=== PATIENT | female | born 1965 | race Caucasian/White ===

== ENCOUNTER 2017-04-19 07:05 | Emergency (ER) | payer BC ==
[2017-04-19 07:19] VITALS: BP 96/32
--- NOTE | 2017-04-19 07:44 | UC ---
Abdominal Pain Female HPI - HPI Summary HPI Summary: 36 HRS OF LOOSE STOOLS WITH TIGIST BRIGHT RED BLOOD. REPORTS LOW GRADE FEVER TMAX 101. APPETITE IS DOWN. IS TAKING FLUIDS BUT NOT MUCH - 500ML EVERY 12 HOURS OR SO. HAS LOWER ABDOMINAL CRAMPING. DENIES NAUSEA, NO VOMITING. IS STARTING TO FEEL DIZZY. HAD HER DRIVE HER HERE SHE DIDN'T FEEL SHE COULD DRIVE HERSELF. - History of Current Complaint Chief Complaint: UCGI Stated Complaint: CRAMPING, AND DIARRHEA WITH BLOOD Time Seen by Provider: 04/19/17 07:18 Hx Obtained From: Patient Hx Last Menstrual Period: one week ago Onset/Duration: Sudden Onset, Lasting Days, Still Present Severity Initially: Moderate Severity Currently: Moderate Pain Intensity: 9 Pain Scale Used: 0-10 Numeric Location: Diffuse Radiates: No Character: Cramping Aggravating Factor(s): Nothing Alleviating Factor(s): Nothing Associated Signs and Symptoms: Positive: Fever, Blood in Stool, Decreased Appetite, Diarrhea. Negative: Nausea, Vomiting Allergies/Adverse Reactions: Allergies Allergy/AdvReac Type Severity Reaction Status Date / Time MS Sulfa Antibiotics Allergy Itching Verified 12/15/15 07:52 [Sulfa Antibiotics] PMH/Surg Hx/FS Hx/Imm Hx Respiratory History: Asthma - Surgical History Surgical History: Yes Surgery Procedure, Year, and Place: HEART MURMUR CORRECTION 1984, BREAST REDUCTION SURGERY 2010, tonsilectomy - Family History Known Family History: Positive: Diabetes Negative: Blood Disorder Family History: NO FAMILY H/O INFLAMMATORY BOWEL DISEASE - Social History Alcohol Use: Rare Substance Use Type: None Smoking Status (MU): Never Smoked Tobacco Have You Smoked in the Last Year: No Review of Systems Constitutional: Fever, Other - DIZZY Respiratory: Negative Cardiovascular: Negative Gastrointestinal: Abdominal Pain, Diarrhea, Nausea Genitourinary: Negative All Other Systems Reviewed And Are Negative: Yes Physical Exam Triage Information Reviewed: Yes Appearance: Well-Appearing, No Pain Distress, Well-Nourished Vital Signs: Initial Vital Signs Temp 98.0 F 04/19/17 07:12 Pulse 71 04/19/17 07:12 Resp 16 04/19/17 07:12 BP 96/32 04/19/17 07:12 Pulse Ox 98 04/19/17 07:12 Vital Signs Reviewed: Yes Eyes: Positive: Conjunctiva Clear ENT: Positive: Hearing grossly normal Neck: Positive: Supple Respiratory Exam: Normal Cardiovascular Exam: Normal Abdomen Description: Positive: Soft, Other: - MILDLY TENDER ACROSS LOWER ABDOMEN. PT DECLINES ALMA DELIA. Negative: CVA Tenderness (R), CVA Tenderness (L), Distended, Guarding Bowel Sounds: Positive: Present Musculoskeletal: Positive: No Edema Neurological: Positive: Alert Psychological: Positive: Age Appropriate Behavior Skin: Negative: rashes Abd Pain Female Course/Dx - Course Course Of Treatment: PT WITH 36 HRS OF BRIGHT RED BLOOD PER RECTUM AND LOW GRADE FEVERS. IS STARTING TO FEEL DIZZY AND BP IS RELATIVELY LOW (96/32). TO [facility] ED BY PRIVATE CAR. PT OFFERED TRANSPORT BY AMBULANCE BUT DECLINES. ADVISED THAT BY NOT TRAVELING IN A MONITORED SETTING SHE COULD BE RISKING WORSENING OF HER CONDITION THAT COULD POSE A THREAT TO HER LIFE, HEALTH AND MEDICAL SAFETY. SHE VERBALIZES UNDERSTANDING AND CONTINUES TO DECLINE AMBULANCE TRANSFER. WILL DRIVE. - Differential Dx/Diagnosis Provider Diagnoses: BRIGHT RED BLOOD PER RECTUM Discharge - Discharge Plan Condition: Stable Disposition: OTHER Discharge Disposition Comment: TO [facility] ED BY PRIVATE CAR Patient Education Materials: Rectal Bleeding (ED) Additional Instructions: GO DIRECTLY TO THE [facility] ED FROM HERE FOR FURTHER EVALUATION. CALL THE NUMBER BELOW FOR ASSISTANCE IN ESTABLISHING WITH A PCP An additional resource available to assist in finding the appropriate physician for your health care needs is the [facility] ([facility]). You may contact them by calling [phone].
== END 2017-04-19 07:39 ==
LOC: UCEAST 07:05
DX: K62.5 Hemorrhage of anus and rectum (principal); R10.30 Lower abdominal pain, unspecified; Z88.2 Allergy status to sulfonamides
CPT/HCPCS: 99212; G0463

== ENCOUNTER 2017-04-19 08:51 | Emergency (ER) | payer BC ==
[2017-04-19 09:50] LABS: ABS Basophils 0 10^3/ul (0-0.2); ABS Eosinophils 0.2 10^3/ul (0-0.6); ABS Lymphocytes 1.5 10^3/ul (1.0-4.8); ABS Monocytes 0.5 10^3/ul (0-0.8); ABS Neutrophils 5.1 10^3/ul (1.5-7.7); ABS Nucleated RBC 0 10^3/ul; Eosinophil % 2.6 % (0-6); Hematocrit 41 % (35-47); Hemoglobin 14.7 g/dl (12.0-16.0); Lymphocyte % 20.6 % (25-47); Mean Corpuscular HGB Conc 36 g/dl (31-36); Mean Corpuscular Hemoglobin 31 pg (27-31); Mean Corpuscular Volume 86 fL (80-97); Mean Platelet Volume 9 um3 (7.4-10.4); Nucleated Red Blood Cells % 0; Platelet Count 175 10^3/ul (150-450); Red Blood Count 4.76 10^6/ul (4.0-5.4); Red Cell Distribution Width 13 % (10.5-15); White Blood Count 7.3 10^3/ul (3.5-10.8)
[2017-04-19 10:04] LABS: INR 0.97 (0.77-1.02)
[2017-04-19 10:07] LABS: EGFR Non-African American 94.4 (>60)
[2017-04-19] MEDS ORDERED: Iohexol 300* (CONTRAST) 10 ML SDV IV ONE (10:57)
[2017-04-19] MEDS ORDERED: Metoclopramide IV* 5 MG/ML 2 ML VIAL IV ONE (11:01)
[2017-04-19] MEDS ORDERED: Ketorolac INJ* 30 MG/ML 1 ML VIAL IM ONE (11:01)
[2017-04-19] MEDS ORDERED: diPHENhydraMINE IV* 50 MG/ML 1 ml VIAL (BENADRYL) IM ONE (11:01)
[2017-04-19 11:28] LABS: Urine Appearance Cloudy; Urine Blood 2+ (Negative); Urine Color Yellow; Urine Ketones Negative (Negative); Urine Protein Negative (Negative); Urine Specific Gravity 1.009 (1.010-1.030); Urine Urobilinogen Negative (Negative)
[2017-04-19 12:45] VITALS: BP 136/77
--- NOTE | 2017-04-19 12:50 | RAD ---
CLINICAL HISTORY: Abdominal pain COMPARISON: December 15, 2015 TECHNIQUE: Multiple contiguous axial CT scans were obtained of the abdomen and pelvis after the administration of intravenous contrast. Coronal and sagittal multiplanar reformations are submitted for review. Oral contrast was administered. Delayed images were obtained through the abdomen and pelvis. FINDINGS: LUNG BASES: The lung bases are clear. LIVER: The liver is normal in shape, size, contour, and attenuation. BILE DUCTS: There is no intrahepatic or extrahepatic biliary dilatation. GALLBLADDER: The gallbladder is normal, without pericholecystic inflammatory change. PANCREAS: The pancreas is normal, without mass or ductal dilatation. SPLEEN: Normal in size and appearance. UPPER GI TRACT: Evaluation of the gastrointestinal tract is limited by incomplete gastric distention. The upper GI tract is unremarkable. SMALL BOWEL AND MESENTERY: The small bowel is normal in contour, course, and caliber. There is no obstruction or dilatation. COLON: There is mucosal thickening of the descending colon with mild stranding of the pericolonic fat. There is a tubular, vermiform, hollow viscus that is blind ending, and originates from the cecum, consistent with a normal appendix. There is no periappendiceal inflammatory change. ADRENALS: Normal bilaterally. KIDNEYS: The kidneys are normal in shape, size, contour, and axis. There is no hydronephrosis or nephrolithiasis. BLADDER: The bladder is smooth in contour. PELVIC ORGANS: The uterus is enlarged and lobulated with multiple fibroids, the largest along the posterior body measuring 5.7 cm. There is prominence of the vasculature along the broad ligaments bilaterally. AORTA: The aorta is normal. IVC: Unremarkable LYMPH NODES: There is no lymphadenopathy by size criteria. ABDOMINAL WALL: There is diastasis recti with a small umbilical hernia containing sidewall of large bowel. BONES AND SOFT TISSUES: Mild degenerative changes are noted. There is a pectus excavatum deformity. OTHER: None IMPRESSION: 1. MUCOSAL THICKENING OF THE DESCENDING COLON WITH STRANDING OF THE PERICOLIC FAT SUGGESTIVE OF COLITIS. 2. FIBROID UTERUS. 3. PROMINENCE OF THE PELVIC VASCULATURE ALONG THE BROAD LIGAMENTS BILATERALLY, NONSPECIFIC BUT CAN BE ASSOCIATED WITH PELVIC CONGESTION SYNDROME IN THE CORRECT CLINICAL SETTING..
--- NOTE | 2017-04-19 18:33 | ED ---
[facility] Angela, scribed for Jose Klein MD on 04/19/17 at 0924 . GI/ HPI - HPI Summary HPI Summary: This pt is a 51 y/o female presenting to [facility] referred by [facility] c/o abdominal cramping and rectal bleeding x2 days. Pt reports that her symptoms began with diarrhea and intense abdominal cramping 2 days ago. She notes diarrhea was more solid than liquid. Pt describes the abd cramping like "maternity cramps."Pt notes that throughout the day pt had rectal bleeding after the bouts of diarrhea. She additionally reports she had a migraine 4 days ago (Monday) for 3 days ( until Monday). Pt took her migraine medication 3 days ago. Pt notes she takes this medication weekly, approximately 5-6 pills/week. Pt has never had a colonoscopy in the past. She has never had rectal bleeding in the past. - History of Current Complaint Chief Complaint: EDAbdPain Time Seen by Provider: 04/19/17 09:15 Stated Complaint: CRAMPING Hx Obtained From: Patient Hx Last Menstrual Period: one week ago Onset/Duration: Started Days Ago, Still Present Timing: Lasting Days Current Severity: Severe Pain Intensity: 9 Location of Pain: Diffuse Pain Characteristics: Cramping Associated Signs and Symptoms: Positive: Bright Red Blood w/Stool, Blood w/Stool , Diarrhea, Other: - rectal bleeding, headache - Allergy/Home Medications Allergies/Adverse Reactions: Allergies Allergy/AdvReac Type Severity Reaction Status Date / Time MS Sulfa Antibiotics Allergy Itching Verified 12/15/15 07:52 [Sulfa Antibiotics] PMH/Surg Hx/FS Hx/Imm Hx Endocrine/Hematology History: Denies: Hx Diabetes - gestational diabetes 11 yrs ago Cardiovascular History: Denies: Hx Hypertension, Hx Pacemaker/ICD Respiratory History: Reports: Hx Asthma - bronchiole spasm according to the patient History: Denies: Hx Dialysis, Hx Renal Disease Sensory History: Denies: Hx Hearing Aid Psychiatric History: Denies: Hx Panic Disorder - Cancer History Hx Chemotherapy: No Hx Radiation Therapy: No - Surgical History Surgery Procedure, Year, and Place: HEART MURMUR CORRECTION 1984, BREAST REDUCTION SURGERY 2010, tonsilectomy Infectious Disease History: No Infectious Disease History: Denies: Hx Clostridium Difficile, Hx Hepatitis, Hx Human Immunodeficiency Virus (HIV), Hx of Known/Suspected MRSA, Hx Shingles, Hx Tuberculosis, Hx Known/ Suspected VRE, Hx Known/Suspected VRSA, History Other Infectious Disease, Traveled Outside the [place] in Last 30 Days - Family History Known Family History: Positive: Diabetes Negative: Blood Disorder Family History: NO FAMILY H/O INFLAMMATORY BOWEL DISEASE - Social History Alcohol Use: Rare Substance Use Type: Reports: None Smoking Status (MU): Never Smoked Tobacco Have You Smoked in the Last Year: No Review of Systems Negative: Fever, Chills Eyes: Negative Gastrointestinal: Other - rectal bleeding Positive: Abdominal Pain, Diarrhea Musculoskeletal: Negative Skin: Negative Positive: Headache All Other Systems Reviewed And Are Negative: Yes Physical Exam - Summary Physical Exam Summary: VITAL SIGNS: Reviewed. GENERAL: Patient is a well-developed and nourished female who is lying comfortable in the stretcher. Patient is not in any acute respiratory distress. HEAD AND FACE: Normocephalic and atraumatic. EYES: PERRLA, EOMI x 2, No injected conjunctiva. EARS: Hearing grossly intact. Ear canals and tympanic membranes are WNL. MOUTH: Oropharynx within normal limits. NECK: Supple, trachea is midline, no adenopathy, no JVD. CHEST: Symmetric, no tenderness at palpation LUNGS: Clear to auscultation bilaterally. No wheezing or crackles. CVS: RRR, S1 and S2 present, no murmurs or gallops appreciated. ABDOMEN: Soft, non-tender. No signs of distention. Positive bowel sounds. No rebound no guarding, and no masses palpated. No abdominal bruit or pulsations. 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 No external hemorrhoids, normal sphincter tone, no melena or gross blood. EXTREMITIES: FROM in all major joints, no edema, no cyanosis or clubbing. NEURO: Alert and oriented x 3. No acute neurological deficits. Speech is normal. SKIN: Dry and warm Triage Information Reviewed: Yes Vital Signs On Initial Exam: Initial Vitals Temp Pulse Resp BP Pulse Ox 97.9 F 62 18 119/65 97 04/19/17 08:52 04/19/17 08:52 04/19/17 08:52 04/19/17 08:52 04/19/17 08:52 Vital Signs Reviewed: Yes Diagnostics - Vital Signs Vital Signs Temp Pulse Resp BP Pulse Ox 04/19/17 08:52 97.9 F 62 18 119/65 97 - Laboratory Lab Results: Lab Results 04/19/17 04/19/17 04/19/17 Range/Units 09:40 09:40 09:40 WBC 7.3 (3.5-10.8) 10^3/ul RBC 4.76 (4.0-5.4) 10^6/ul Hgb 14.7 (12.0-16.0) g/dl Hct 41 (35-47) % MCV 86 (80-97) fL MCH 31 (27-31) pg MCHC 36 (31-36) g/dl RDW 13 (10.5-15) % Plt Count 175 (150-450) 10^3/ul MPV 9 (7.4-10.4) um3 Neut % (Auto) 69.9 (38-83) % Lymph % (Auto) 20.6 L (25-47) % [place] % (Auto) 6.3 (1-9) % Eos % (Auto) 2.6 (0-6) % Baso % (Auto) 0.6 (0-2) % Absolute Neuts (auto) 5.1 (1.5-7.7) 10^3/ul Absolute Lymphs (auto) 1.5 (1.0-4.8) 10^3/ul Absolute Monos (auto) 0.5 (0-0.8) 10^3/ul Absolute Eos (auto) 0.2 (0-0.6) 10^3/ul Absolute Basos (auto) 0 (0-0.2) 10^3/ul Absolute Nucleated RBC 0 10^3/ul Nucleated RBC % 0 INR (Anticoag Therapy) 0.97 (0.77-1.02) APTT 28.7 (26.0-36.3) seconds Sodium 135 (133-145) mmol/L Potassium 3.6 (3.5-5.0) mmol/L Chloride 102 (101-111) mmol/L Carbon Dioxide 28 (22-32) mmol/L Anion Gap 5 (2-11) mmol/L BUN 13 (6-24) mg/dL Creatinine 0.66 (0.51-0.95) mg/dL Est GFR ( Amer) 121.4 (>60) Est GFR (Non-Af Amer) 94.4 (>60) BUN/Creatinine Ratio 19.7 (8-20) Glucose 122 H (70-100) mg/dL Calcium 9.5 (8.6-10.3) mg/dL Total Bilirubin 0.90 (0.2-1.0) mg/dL AST 13 (13-39) U/L ALT 12 (7-52) U/L Alkaline Phosphatase 38 (34-104) U/L C-Reactive Protein 14.89 H (< 5.00) mg/L Total Protein 6.8 (6.4-8.9) g/dL Albumin 4.2 (3.2-5.2) g/dL Globulin 2.6 (2-4) g/dL Albumin/Globulin Ratio 1.6 (1-3) Lipase 15 (11.0-82.0) U/L Urine Color Urine Appearance Urine pH (5-9) Ur Specific [place] (1.010-1.030) Urine Protein (Negative) Urine Ketones (Negative) Urine Blood (Negative) Urine Nitrate (Negative) Urine Bilirubin (Negative) Urine Urobilinogen (Negative) Ur Leukocyte Esterase (Negative) Urine WBC (Auto) (Absent) Urine RBC (Auto) (Absent) Ur Squamous Epith Cells (Absent) Urine Bacteria (Absent) Urine Glucose (Negative) 04/19/17 Range/Units 11:00 WBC (3.5-10.8) 10^3/ul RBC (4.0-5.4) 10^6/ul Hgb (12.0-16.0) g/dl Hct (35-47) % MCV (80-97) fL MCH (27-31) pg MCHC (31-36) g/dl RDW (10.5-15) % Plt Count (150-450) 10^3/ul MPV (7.4-10.4) um3 Neut % (Auto) (38-83) % Lymph % (Auto) (25-47) % [place] % (Auto) (1-9) % Eos % (Auto) (0-6) % Baso % (Auto) (0-2) % Absolute Neuts (auto) (1.5-7.7) 10^3/ul Absolute Lymphs (auto) (1.0-4.8) 10^3/ul Absolute Monos (auto) (0-0.8) 10^3/ul Absolute Eos (auto) (0-0.6) 10^3/ul Absolute Basos (auto) (0-0.2) 10^3/ul Absolute Nucleated RBC 10^3/ul Nucleated RBC % INR (Anticoag Therapy) (0.77-1.02) APTT (26.0-36.3) seconds Sodium (133-145) mmol/L Potassium (3.5-5.0) mmol/L Chloride (101-111) mmol/L Carbon Dioxide (22-32) mmol/L Anion Gap (2-11) mmol/L BUN (6-24) mg/dL Creatinine (0.51-0.95) mg/dL Est GFR ( Amer) (>60) Est GFR (Non-Af Amer) (>60) BUN/Creatinine Ratio (8-20) Glucose (70-100) mg/dL Calcium (8.6-10.3) mg/dL Total Bilirubin (0.2-1.0) mg/dL AST (13-39) U/L ALT (7-52) U/L Alkaline Phosphatase (34-104) U/L C-Reactive Protein (< 5.00) mg/L Total Protein (6.4-8.9) g/dL Albumin (3.2-5.2) g/dL Globulin (2-4) g/dL Albumin/Globulin Ratio (1-3) Lipase (11.0-82.0) U/L Urine Color Yellow Urine Appearance Cloudy Urine pH 6.0 (5-9) Ur Specific [place] 1.009 L (1.010-1.030) Urine Protein Negative (Negative) Urine Ketones Negative (Negative) Urine Blood 2+ H (Negative) Urine Nitrate Negative (Negative) Urine Bilirubin Negative (Negative) Urine Urobilinogen Negative (Negative) Ur Leukocyte Esterase 1+ H (Negative) Urine WBC (Auto) 2+(11-20/hpf) H (Absent) Urine RBC (Auto) Trace(0-2/hpf) (Absent) Ur Squamous Epith Cells Present H (Absent) Urine Bacteria 1+ H (Absent) Urine Glucose Negative (Negative) Result Diagrams: 04/19/17 09:40 04/19/17 09:40 Lab Statement: Any lab studies that have been ordered have been reviewed, and results considered in the medical decision making process. - CT Abdomen/Pelvis CT CT Interpretation: Positive (See Comments) - IMPRESSION: 1. Mucosal thickening of the descending colon with stranding of the pericolic fat suggestive colitis. 2. Fibroid uterus. 3. Prominence of the pelvic vasculature along the broad ligaments bilaterally. Nonspecific but can be associated with pelvic congestion syndrome in the correct clinical setting. Dr. Klein has reviewed this radiology report. CT Interpretation Completed By: Radiologist - EKG 09:50 Cardiac Rate: NL EKG Rhythm: Sinus Rhythm - at 63 bpm EKG Interpretation: No ST elevation. T wave inversion V2-V5. Re-Evaluation - Re-Evaluation First Eval Re-Evaluation Time: 13:30 Comment: I reviewed the CT and lab results with the pt. GIGU Course/Dx - Course Assessment/Plan: This pt is a 51 y/o female presenting to [facility] referred by [facility] c/o abdominal cramping and rectal bleeding x2 days. Pt reports that her symptoms began with diarrhea and intense abdominal cramping 2 days ago. She notes diarrhea was more solid than liquid. Pt describes the abd cramping like "maternity cramps."Pt notes that throughout the day pt had rectal bleeding after the bouts of diarrhea. She additionally reports she had a migraine 4 days ago (Monday) for 3 days (until Monday). Pt took her migraine medication 3 days ago. Pt notes she takes this medication weekly, approximately 5-6 pills/ week. Pt has never had a colonoscopy in the past. She has never had rectal bleeding in the past. Test results without any significant abnormalities. Urinalysis is contaminated. Abdomen/Pelvis CT: 1. Mucosal thickening of the descending colon with stranding of the pericolic fat suggestive colitis. 2. Fibroid uterus. 3. Prominence of the pelvic vasculature along the broad ligaments bilaterally. Nonspecific but can be associated with pelvic congestion syndrome in the correct clinical setting. In the ED course the pt developed a headache similar to her migraine headache. She was given Benadryl, Toradol and Reglan and after these medications all her symptoms resolved. She reports she has no more abdominal pain or headache. Since she has colitis, she was discharged to home with follow up from GI, as she insisted she needed a GI consult. She was given Bentyl for the cramping. Pt will be discharged to home with follow up from her PCP. Pt is hemodynamically stable, alert and oriented x3. - Diagnoses Provider Diagnoses: Colitis, Migraine Discharge - Discharge Plan Condition: Stable Disposition: HOME Prescriptions: Dicyclomine CAP* [Bentyl CAP*] 10 mg PO AC PRN #10 cap PRN Reason: Pain Patient Education Materials: Colitis (ED) Referrals: Bryce Morris MD [Medical Doctor] - No Primary Care Phys,NOPCP [Primary Care Provider] - Aaron Lozano MD [Medical Doctor] - Additional Instructions: Please follow up with Dr. Morris or Dr. Lozano, rn trauma. RETURN TO THE ED FOR ANY WORSENING SYMPTOMS. The documentation as recorded by the [facility] Angela accurately reflects the service I personally performed and the decisions made by , Jose Klein MD.
--- NOTE | 2017-04-20 12:27 | ED ---
Progress - Progress Note Progress Note: Pt's stool occult blood test was positive. She was dx'd w/ colitis and referred to GI. Vitals and labs appear WNL day of visit in re: to GI bleed. Called pt to confirm she still feels well and make sure she's f/u'd w/ GI. LMTC. Re-Evaluation - Re-Evaluation First Eval Re-Evaluation Time: 13:30 Comment: I reviewed the CT and lab results with the pt. Course/Dx - Diagnoses Provider Diagnoses: Colitis, Migraine
== END 2017-04-19 13:50 | disposition home or self-care (01) ==
LOC: ED 08:51
DX: K52.9 Noninfective gastroenteritis and colitis, unspecified (principal); R10.9 Unspecified abdominal pain; R19.7 Diarrhea, unspecified; G43.909 Migraine, unspecified, not intractable, without status migrainosus; K62.5 Hemorrhage of anus and rectum; R51 Headache
CPT/HCPCS: 36415; 74177; 80053; 81003; 81015; 82272; 83690; 85025; 85610; 85730; 86140; 87086; 93005; 96372; 99284; J1200; J1885; J2765; Q9967

== ENCOUNTER 2017-04-21 13:05 | Emergency (ER) | payer BC ==
--- NOTE | 2017-04-21 14:28 | RAD ---
INDICATION: Right lower quadrant pain. COMPARISON: Comparison is made with a prior pelvic ultrasound from December 08, 2015. TECHNIQUE: Multiple real-time transvaginal images of the pelvis were obtained. FINDINGS: The uterus is enlarged and heterogeneous in echogenicity. The uterus measured 10.4 x 7.7 x 6.7 cm. The endometrial echo measured 1.2 cm in thickness. There are multiple masses within the uterus system with leiomyomas. In the posterior body of the uterus there is a 5.3 x 4.3 x 4.2 cm mass which has decreased in size from the prior exam. In the anterior fundus there is a 1.4 x 0.9 x 1.2 cm mass which has decreased slightly. In the posterior lower uterine segment there is a 2.1 x 1.7 x 22.4 cm mass which is unchanged. The right ovary measured 2.5 x 1.7 x 2.4 cm. The left ovary measured 2.1 x 1.8 x 1.8 cm. There is vascular flow within both ovaries. There is a small cyst within the right ovary measuring 1.2 x 1.1 x 1.2 cm. No free intraperitoneal fluid is seen. IMPRESSION: 1. MODERATELY ENLARGED UTERUS WITH MULTIPLE LEIOMYOMAS SLIGHTLY DECREASED IN SIZE FROM THE PRIOR STUDY. 2. SMALL 1.2 CM RIGHT OVARIAN CYST SUGGESTIVE OF A FOLLICULAR CYST.
[2017-04-21 15:25] VITALS: BP 124/60
--- NOTE | 2017-04-21 16:30 | UC ---
Abdominal Pain Female HPI - HPI Summary HPI Summary: 51 yo WF h/o fibroids c/o right lower mid inguinal pain x 2 days, worsening associated with low grade fevers. Still menstrates but no other history. [facility] appt was full so pt was told to come to for pelvic US - History of Current Complaint Chief Complaint: UCGU Stated Complaint: ABD PAIN Time Seen by Provider: 04/21/17 15:57 Hx Obtained From: Patient Hx Last Menstrual Period: 04/08/17 Onset/Duration: Gradual Onset Severity Initially: Moderate Pain Intensity: 4 Radiates to: Inguinal Character: Cramping, Sharp Allergies/Adverse Reactions: Allergies Allergy/AdvReac Type Severity Reaction Status Date / Time Sulfa (Sulfonamide Allergy Hives Verified 04/21/17 13:22 Antibiotics) PMH/Surg Hx/FS Hx/Imm Hx - Additional Past Medical History Additional PMH: IBD, Fibroids - Surgical History Surgical History: Yes Surgery Procedure, Year, and Place: HEART MURMUR CORRECTION 1984, BREAST REDUCTION SURGERY 2010, tonsilectomy - Family History Known Family History: Positive: Diabetes Negative: Blood Disorder Family History: NO FAMILY H/O INFLAMMATORY BOWEL DISEASE - Social History Alcohol Use: Rare Substance Use Type: None Smoking Status (MU): Never Smoked Tobacco Have You Smoked in the Last Year: No Review of Systems Constitutional: Fever Skin: Negative Eyes: Negative ENT: Negative Respiratory: Negative Cardiovascular: Negative Gastrointestinal: Abdominal Pain Genitourinary: Negative Motor: Negative Neurovascular: Negative Musculoskeletal: Negative Neurological: Negative Psychological: Negative Is Patient Immunocompromised?: No All Other Systems Reviewed And Are Negative: Yes Physical Exam Triage Information Reviewed: Yes Vital Signs: Initial Vital Signs Temp 36.2 C 04/21/17 13:12 Pulse 57 04/21/17 13:12 Resp 16 04/21/17 13:12 BP 121/63 04/21/17 13:12 Pulse Ox 100 04/21/17 13:12 Eye Exam: Normal ENT Exam: Normal Dental Exam: Normal Neck exam: Normal Neck: Positive: 1 Respiratory Exam: Normal Cardiovascular Exam: Normal Abdomen Description: Positive: Soft, Other: - right mid inguinal tenderness, no rebound or guarding. Negative: CVA Tenderness (R), CVA Tenderness (L), Distended, Guarding, McBurney's Point Tenderness Musculoskeletal Exam: Normal Neurological Exam: Normal Psychological Exam: Normal Skin Exam: Normal Abd Pain Female Course/Dx - Differential Dx/Diagnosis Provider Diagnoses: right pelvic pain Discharge - Discharge Plan Condition: Stable Disposition: HOME Patient Education Materials: Chronic Abdominal Pain (ED) Referrals: Vianney Enrique MD [Primary Care Provider] - Additional Instructions: follow up with [facility]
== END 2017-04-21 16:27 | disposition home or self-care (01) ==
LOC: UCEAST 13:05
DX: R10.2 Pelvic and perineal pain (principal); Z88.2 Allergy status to sulfonamides
CPT/HCPCS: 76830; 99211; G0463

== ENCOUNTER 2017-06-03 21:17 | Emergency (ER) | payer BC ==
[2017-06-03 21:35] VITALS: BP 125/76
--- NOTE | 2017-06-03 21:45 | UC ---
Skin Complaint HPI - HPI Summary HPI Summary: Pt presents with right thumb pad pain. She tells me that 5 days ago she was cleaning up a broken glass on the floor and thinks she may have gotten a small piece under her skin. Had no pain at the time, but today has a small area of redness and pain on her right thumb. - History of Current Complaint Chief Complaint: UCUpperExtremity Time Seen by Provider: 06/03/17 21:45 Stated Complaint: POSS GLASS IN THUMB Hx Obtained From: Patient Hx Last Menstrual Period: one month ago Onset/Duration: Sudden Onset Current Severity: Moderate Pain Intensity: 5 Pain Scale Used: 0-10 Numeric - Allergy/Home Medications Allergies/Adverse Reactions: Allergies Allergy/AdvReac Type Severity Reaction Status Date / Time Sulfa (Sulfonamide Allergy Hives Verified 06/03/17 21:35 Antibiotics) Home Medications: Home Medications NK [No Home Medications Reported] 06/03/17 [History Confirmed 06/03/17] Review of Systems Constitutional: Negative Skin: Other - Right thumb redness Respiratory: Negative Cardiovascular: Negative Neurovascular: Negative Musculoskeletal: Negative Neurological: Negative Psychological: Negative All Other Systems Reviewed And Are Negative: Yes PMH/Surg Hx/FS Hx/Imm Hx Previously Healthy: Yes - Surgical History Surgical History: Yes Surgery Procedure, Year, and Place: HEART MURMUR CORRECTION 1984, BREAST REDUCTION SURGERY 2010, tonsilectomy - Family History Known Family History: Positive: Diabetes Negative: Blood Disorder Family History: NO FAMILY H/O INFLAMMATORY BOWEL DISEASE - Social History Occupation: Employed Full-time Lives: With Family Alcohol Use: Rare Substance Use Type: None Smoking Status (MU): Never Smoked Tobacco Have You Smoked in the Last Year: No Physical Exam Triage Information Reviewed: Yes Appearance: Well-Appearing, No Pain Distress, Well-Nourished Vital Signs: Initial Vital Signs Temp 98.3 F 06/03/17 21:32 Pulse 66 06/03/17 21:32 Resp 12 06/03/17 21:32 BP 125/76 06/03/17 21:32 Pulse Ox 99 06/03/17 21:32 Vital Signs Reviewed: Yes Neck: Positive: Supple, Nontender, No Lymphadenopathy Respiratory: Positive: Lungs clear, Normal breath sounds, No respiratory distress, No accessory muscle use Cardiovascular: Positive: RRR, No Murmur, Pulses Normal Musculoskeletal: Positive: Strength Intact - Right thumb, ROM Intact - Right thumb, No Edema - Right thumb Neurological: Positive: Alert Psychological: Positive: Age Appropriate Behavior Skin: Positive: Other - <1mm pinpoint ?scab on right thumb pad. Mild ttp. No appreciable FB. No drainage or bleeding. Course/Dx - Course Course Of Treatment: I offered the patient a referral to dermatology or Orthopedics for further investigation of her potential FB. I also offered her my services of exploring the wound with a local incision. She was upset that we did not posess a magnifying glass or microscope that could see if there was something in her skin. She chose not to undergo treatment and will f/u prn. - Diagnoses Provider Diagnoses: Right thumb pain Discharge - Sign-Out/Discharge Documenting (check all that apply): Discharge - Discharge Plan Condition: Stable Disposition: HOME Referrals: Vianney Enrique MD [Primary Care Provider] - Additional Instructions: If you develop a fever, shortness of breath, chest pain, new or worsening symptoms - please call your PCP or go to the ED. - Billing Disposition and Condition Condition: STABLE Disposition: HOME
== END 2017-06-03 22:17 | disposition home or self-care (01) ==
LOC: UCEAST 21:17
DX: M79.644 Pain in right finger(s) (principal); Z88.2 Allergy status to sulfonamides
CPT/HCPCS: 99211; G0463

== ENCOUNTER 2017-09-14 12:43 | Emergency (ER) | payer BC ==
[2017-09-14 12:54] VITALS: BP 109/56
--- NOTE | 2017-09-14 14:36 | ED ---
Throat Pain/Nasal Congestion - HPI Summary HPI Summary: Patient believes she swallowed a half a smaller portion of the day old toothpick that was lodged in a piece of meat at 11:00 this morning. She felt something sharp in her mouth however denies pain in her throat, esophagus or stomach. She's been able to swallow her saliva as well as water without pain or difficulty. She is also breathing without pain or difficulty. - History of Current Complaint Chief Complaint: EDForeignBodyEsophag Time Seen by Provider: 09/14/17 13:25 Hx Obtained From: Patient - Allergies/Home Medications Allergies/Adverse Reactions: Allergies Allergy/AdvReac Type Severity Reaction Status Date / Time Sulfa (Sulfonamide Allergy Hives Verified 09/14/17 12:54 Antibiotics) Home Medications: Home Medications Multivitamins/Minerals TAB* [Theragran/minerals TAB*] 1 tab PO DAILY 09/14/17 [ History Confirmed 09/14/17] PMH/Surg Hx/FS Hx/Imm Hx Endocrine/Hematology History: Denies: Hx Diabetes - gestational diabetes 11 yrs ago Cardiovascular History: Denies: Hx Hypertension, Hx Pacemaker/ICD Respiratory History: Reports: Hx Asthma - bronchiole spasm according to the patient History: Denies: Hx Dialysis, Hx Renal Disease Sensory History: Denies: Hx Hearing Aid Psychiatric History: Denies: Hx Panic Disorder - Cancer History Hx Chemotherapy: No Hx Radiation Therapy: No - Surgical History Surgery Procedure, Year, and Place: HEART MURMUR CORRECTION 1984, BREAST REDUCTION SURGERY 2010, tonsilectomy Infectious Disease History: No Infectious Disease History: Denies: Hx Clostridium Difficile, Hx Hepatitis, Hx Human Immunodeficiency Virus (HIV), Hx of Known/Suspected MRSA, Hx Shingles, Hx Tuberculosis, Hx Known/ Suspected VRE, Hx Known/Suspected VRSA, History Other Infectious Disease, Traveled Outside the [place] in Last 30 Days - Family History Known Family History: Positive: Diabetes Negative: Blood Disorder Family History: NO FAMILY H/O INFLAMMATORY BOWEL DISEASE - Social History Alcohol Use: Rare Substance Use Type: Reports: None Smoking Status (MU): Never Smoked Tobacco Have You Smoked in the Last Year: No Physical Exam Vital Signs On Initial Exam: Initial Vitals Temp Pulse Resp BP Pulse Ox 98.3 F 61 16 109/56 95 09/14/17 12:50 09/14/17 12:50 09/14/17 12:50 09/14/17 12:50 09/14/17 12:50 Diagnostics - Vital Signs Vital Signs Temp Pulse Resp BP Pulse Ox 09/14/17 12:50 98.3 F 61 16 109/56 95 - Laboratory Lab Statement: Any lab studies that have been ordered have been reviewed, and results considered in the medical decision making process. EENT Course/Dx - Course Course Of Treatment: Discussed with Esteban and catie - both feel she does not need further workup at this time. - Diagnoses Provider Diagnoses: Swallowed foreign body Discharge - Sign-Out/Discharge Documenting (check all that apply): Patient Departure - Discharge Plan Condition: Stable Disposition: HOME Patient Education Materials: Foreign Body Ingestion (ED) Referrals: Vianney Enrique MD [Primary Care Provider] - Additional Instructions: Based on your clinical presentation and history of illness, your body will most likely breakdown the small piece of toothpick before it advances further into your digestive tract. *If in the meantime you develop throat swelling, difficulty breathing or swallowing, significant abdominal pain, nausea without vomiting, fevers or chills, neck pain or stiffness, return to the emergency department. - Billing Disposition and Condition Condition: STABLE Disposition: Home
== END 2017-09-14 14:45 | disposition home or self-care (01) ==
LOC: ED 12:43
DX: T18.0XXA Foreign body in mouth, initial encounter (principal); X58.XXXA Exposure to other specified factors, initial encounter; Y92.9 Unspecified place or not applicable; Z88.2 Allergy status to sulfonamides
CPT/HCPCS: 99281

== ENCOUNTER 2018-04-05 14:44 | Emergency (ER) | payer BC ==
--- NOTE | 2018-04-05 15:30 | ED ---
HPI Chest Pain - HPI Summary HPI Summary: 52 year old female with history of asthma and a congenital heart murmur, presents today complaining of chest pain. She had similar pain in the past with a hospital and outpatient work-up done previously. She last saw a fourdrinier tender for this 5-6 years ago. She developed chest pain starting during the night and with exertion. She also endorses a sensation of being "unable to get enough breath," but denies shortness of breath or wheezing. She denies new URI symptoms. No new swelling in the legs. - History of Current Complaint Chief Complaint: EDChestPainROMI Time Seen by Provider: 04/05/18 14:53 Hx Obtained From: Patient Hx Last Menstrual Period: one month ago Onset/Duration: Started Days Ago, Atraumatic Time of Onset: 01:00 - last night Timing: Constant Initial Severity: Mild Current Severity: Mild Pain Intensity: 4 Pain Scale Used: 0-10 Numeric Chest Pain Location: Left Anterior Chest Pain Radiates: Yes Chest Pain Radiates To:: Arm Character: Pressure/Squeezing Aggravating Factor(s): Exertion Alleviating Factor(s): Rest Associated Signs and Symptoms: Negative: Fever, Chills, Nausea, Abdominal Pain, Vomiting - Allergy/Home Medications Allergies/Adverse Reactions: Allergies Allergy/AdvReac Type Severity Reaction Status Date / Time albuterol Allergy Shortness Verified 04/05/18 15:14 of Breath Sulfa (Sulfonamide Allergy Hives Verified 09/14/17 12:54 Antibiotics) PMH/Surg Hx/FS Hx/Imm Hx Endocrine/Hematology History: Denies: Hx Anticoagulant Therapy, Hx Blood Disorders, Hx Diabetes - gestational diabetes 11 yrs ago, Hx Anemia, Hx Unexplained Bleeding Cardiovascular History: Denies: Hx Hypertension, Hx Pacemaker/ICD Respiratory History: Reports: Hx Asthma - bronchiole spasm according to the patient History: Denies: Hx Dialysis, Hx Renal Disease Sensory History: Denies: Hx Hearing Aid Psychiatric History: Denies: Hx Panic Disorder - Cancer History Hx Chemotherapy: No Hx Radiation Therapy: No - Surgical History Surgery Procedure, Year, and Place: HEART MURMUR CORRECTION 1984, BREAST REDUCTION SURGERY 2010, tonsilectomy - Immunization History Immunizations Up to Date: Yes Infectious Disease History: No Infectious Disease History: Denies: Hx Clostridium Difficile, Hx Hepatitis, Hx Human Immunodeficiency Virus (HIV), Hx of Known/Suspected MRSA, Hx Shingles, Hx Tuberculosis, Hx Known/ Suspected VRE, Hx Known/Suspected VRSA, History Other Infectious Disease, Traveled Outside the [place] in Last 30 Days - Family History Known Family History: Positive: Diabetes Negative: Blood Disorder Family History: NO FAMILY H/O INFLAMMATORY BOWEL DISEASE - Social History Alcohol Use: Rare Hx Substance Use: No Substance Use Type: Reports: None Hx Tobacco Use: No Smoking Status (MU): Never Smoked Tobacco Have You Smoked in the Last Year: No Review of Systems Negative: Fever, Chills Negative: Sore Throat, Nasal Discharge Positive: Chest Pain. Negative: Palpitations Respiratory: Other - she has the sensation that she can't get enough air, but doesn't fell short of breath Negative: Shortness Of Breath, Cough Gastrointestinal: Negative Negative: dysuria, hematuria, pain Negative: Arthralgia, Myalgia Negative: Rash Positive: Anxious All Other Systems Reviewed And Are Negative: Yes Physical Exam Triage Information Reviewed: Yes Vital Signs On Initial Exam: Initial Vitals Temp Pulse Resp BP Pulse Ox 97.4 F 65 18 145/71 98 04/05/18 14:47 04/05/18 14:47 04/05/18 14:47 04/05/18 14:47 04/05/18 14:47 Vital Signs Reviewed: Yes Appearance: Positive: Well-Appearing, No Pain Distress, Well-Nourished Skin: Positive: Warm, Skin Color Reflects Adequate Perfusion, Dry Head/Face: Positive: Normal Head/Face Inspection Eyes: Positive: Normal, EOMI, Conjunctiva Clear. Negative: Discharge ENT: Positive: Normal ENT inspection, Hearing grossly normal. Negative: Nasal congestion, Nasal drainage, Muffled voice, Hoarse voice Neck: Positive: Supple, Nontender, No Lymphadenopathy. Negative: Nuchal Rigidity Respiratory/Lung Sounds: Positive: Clear to Auscultation, Breath Sounds Present , Decreased Breath Sounds. Negative: Rales, Rhonchi, Wheezes Cardiovascular: Positive: Normal, RRR. Negative: Leg Edema Left, Leg Edema Right Abdomen Description: Positive: Nontender, No Organomegaly, Soft. Negative: Distended, Guarding Bowel Sounds: Positive: Present Musculoskeletal: Positive: Normal Neurological: Positive: Normal, Sensory/Motor Intact, Alert, Oriented to Person Place, Time, CN Intact II-III, Reflexes Intact, Normal Gait Psychiatric: Positive: Anxious Diagnostics - Vital Signs Vital Signs Temp Pulse Resp BP Pulse Ox 04/05/18 14:47 97.4 F 65 18 145/71 98 - Laboratory Lab Results: Lab Results 04/05/18 Range/Units 14:56 POC Glucose (mg/dL) 95 (70-100) mg/dL Result Diagrams: 04/05/18 15:44 04/05/18 15:44 Lab Statement: Any lab studies that have been ordered have been reviewed, and results considered in the medical decision making process. - EKG No standard instances Cardiac Rate: NL EKG Rhythm: Sinus Rhythm ST Segment: Normal Ectopy: None - t-wave inversions in V1 - V4, t-wave flattening in AVF Summary of EKG Findings: nonspecific ekg Re-Evaluation - Re-Evaluation First Eval Change: Improved Chest Pain Course/Dx - Course Assessment/Plan: Assessment: chest pain. Plan: troponin x2 and discharge patient if negative. - Chest Pain Differential Diagnosis/HQI/PQRI: Acute ME, ACS, Angina, Chest Wall, Other: - anxiety - Diagnoses Provider Diagnoses: Chest pain Is Visit Related: No Discharge - Sign-Out/Discharge Documenting (check all that apply): Patient Departure Patient Received Moderate/Deep Sedation with Procedure: No - Discharge Plan Condition: Good Disposition: HOME Patient Education Materials: Chest Pain (ED) Print Language: GREENLANDIC Referrals: Madeline Silverio MD [Primary Care Provider] - - Billing Disposition and Condition Condition: GOOD Disposition: Home
[2018-04-05 15:59] LABS: ABS Basophils 0 10^3/ul (0-0.2); ABS Eosinophils 0.2 10^3/ul (0-0.6); ABS Lymphocytes 1.7 10^3/ul (1.0-4.8); ABS Monocytes 0.4 10^3/ul (0-0.8); ABS Neutrophils 4.3 10^3/ul (1.5-7.7); ABS Nucleated RBC 0 10^3/ul; Eosinophil % 2.8 %; Hematocrit 40 % (35-47); Hemoglobin 14.2 g/dl (12.0-16.0); Lymphocyte % 25.4 %; Mean Corpuscular HGB Conc 36 g/dl (31-36); Mean Corpuscular Hemoglobin 31 pg (27-31); Mean Corpuscular Volume 86 fL (80-97); Mean Platelet Volume 8.5 fL (7.4-10.4); Nucleated Red Blood Cells % 0.1; Platelet Count 157 10^3/ul (150-450); Red Blood Count 4.64 10^6/ul (4.00-5.40); Red Cell Distribution Width 13 % (10.5-15); White Blood Count 6.6 10^3/ul (3.5-10.8)
--- OUTSIDE RECORDS SUMMARY | 2018-04-05 16:03 | XMS REPORT | Continuity of Care Document ---
:1965 External Reference #:[id number] Author Name Marni Alfaro MD Address [email or web address] [place] [address] Care Team Providers Name Role Phone Nikkie Silverio Primary Care Physician Unavailable Payers Type Date Identification Numbers Payment Provider Subscriber Effective: Policy Number: Armando Bower 2007 [id number] [facility] Expires: 2009 PayID: [id number] [facility] [address] [place] [address] Effective: 2009 Policy Number: Armando CALERO/MALU Bower [id number] [facility] Expires: 2010 PayID: [id number] [facility] [address] [place] [address] Effective: 2010 Policy Number: Armando Bower [id number] [facility] PayID: [id number] [facility] [address] [place] [address] Advance Directives Description No Information Available Problems Description No Active Problems Family History Date Family Member(s) Problem(s) Comments Father A&W Mother Breast Cancer dx age 67 Mother due to Breast Cancer () Mother due to Lung Cancer () Number of Children 1 First Daughter A&W Number of Siblings Siblings: 1 Order Patient is the oldest of two children First Sister A&W Paternal Grandfather due to Old Age () Paternal Grandmother Diabetes, Type 2 Paternal Grandmother due to Diabetes () Maternal Grandfather Hypertension Maternal Grandfather due to Unknown Causes () Maternal Grandmother Breast Cancer dx age 50 Maternal Grandmother due to Breast Cancer () Social History Type Date Description Comments Sex Unknown Education Highest level of education completed is a master's degree Marital Status Patient is Living Situation Lives with spouse and daughter Sleep Typically sleeps 6 hours a night Occupation Teacher sub Cigarette Use Never smoked cigarettes Alcohol Rarely drinks alcohol Tobacco Use Start: Unknown Patient has never smoked Drug Use Denies drug use Smoking Status Reviewed: 08/23/16 Patient has never smoked Daily Caffeine Drinks on average 1 cup of coffee a day Exercise Type/Frequency Exercises regularly Current Seat Belt/Car Seat Always uses a seat belt Currently Active The patient is currently sexually active Contraceptive Methods Does not currently use any method of control 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 Allergies, Adverse Reactions, Alerts Date Description Reaction Status Severity Comments 11/18/2010 Sulfa Active Medications Medication Date Status Form Strength Qnty SIG Indications Ordering Provider Advil / Active Unknown 0000 Almotriptan / Active Unknown Malate 0000 Diflucan 04/05/ Hx Tablets 150mg 2tabs 1 tab by mouth Nara 2018 - then 2nd tab 72 Byers, 03/06/ hours later as CNM 2019 needed for continued symptoms Diflucan 07/04/ Hx Tablets 150mg 2tabs take 1 pill as Piedad 2015 - directed, Jonnathan, 07/19/ repeat in 72 MD 2017 hours if still symptomatic Diflucan 07/02/ Hx Tablets 150mg 1tabs 1 by mouth 616.11 Zuleika 2013 - times 1 day Jump, 07/03/ ANP-C 2013 Metrogel-Vagi 07/09/ Hx Gel 0.75% 1tube apply Delma adkins 2009 - intravaginally Dm, 04/01/ for 5 nights CNM 2010 consecutively Diflucan 06/26/ Hx Tablets 150mg 1tabs 1 po times 1 Zuleika 2008 - day Jump, 06/27/ ANP-C 2008 Axert 11/09/ Hx Tablets 12.5mg 30tabs Briseno 2006 - Can 11/09/ , CNM 2006 Axert 11/09/ Hx Tablets 12.5mg 30tabs take 1 tablet Briseno 2006 - po at onset of Can 11/25/ migraine , CNM 2010 symptoms. Clobetasol 04/26/ Hx Cream 0.05% 30gm apply to Briseno 2006 - affected area Can 08/26/ up to tid , CNM 2007 Diflucan 05/26/ Hx Tablets 150mg 1tabs 1 PO Times 1 Heather 2006 - Day Zuniga, 04/05/ CNM 2006 Terazol 3 03/17/ Hx Cream 0.8% 1Tube 1 application Heather 2005 - per vagina q hs Zuniga, 04/06/ x 3 CNM 2006 Clindesse 2% 09/02/ Hx Cream 5gm 1Tube insert Zuleika 2004 - vaginally @ hs Jump, 12/08/ times 1 ANP-C 2004 Cleocin 2% 07/05/ Hx Cream 2% 40g apply q hs Kentrell O, Vaginal Cream 2005 - C.N.M. 2006 Medications Administered in Office Medication Date Status Form Strength Qnty SIG Indications Ordering Provider PT SCRN Tbco Administered Injection Angelina, Hardy as Non User 019 MD Marni Immunizations Description No Information Available Vital Signs Date Vital Result Comment 03/28/2018 1:08pm BP Systolic 126 mmHg BP Diastolic 78 mmHg Height 62 inches 5'2" Weight 151.00 lb BMI (Body Mass Index) 27.6 kg/m2 Last Menstrual Period [id number] 08/23/2016 11:52am BP Systolic 110 mmHg BP Diastolic 70 mmHg Height 62 inches 5'2" Weight 151.00 lb BMI (Body Mass Index) 27.6 kg/m2 Last Menstrual Period [id number] 2 Parity 1 07/19/2016 9:07am BP Systolic 122 mmHg BP Diastolic 70 mmHg Height 62 inches 5'2" Weight 154.00 lb BMI (Body Mass Index) 28.2 kg/m2 Last Menstrual Period 6999722 2 Parity 1 06/03/2015 8:17am BP Systolic 108 mmHg BP Diastolic 64 mmHg Height 62 inches 5'2" Weight 145.00 lb BMI (Body Mass Index) 26.5 kg/m2 Last Menstrual Period [id number] 2 Parity 1 12/04/2014 8:01am BP Systolic 110 mmHg BP Diastolic 62 mmHg Height 62 inches 5'2" Weight 144.00 lb BMI (Body Mass Index) 26.3 kg/m2 Last Menstrual Period 5141723 2 Parity 1 07/04/2014 1:00pm BP Systolic 112 mmHg BP Diastolic 72 mmHg Height 62 inches 5'2" Weight 147.00 lb BMI (Body Mass Index) 26.9 kg/m2 Last Menstrual Period [id number] 21 Parity 1 12/25/2013 8:13am BP Systolic 110 mmHg BP Diastolic 72 mmHg Height 62 inches 5'2" Weight 138.00 lb BMI (Body Mass Index) 25.2 kg/m2 Last Menstrual Period 0975920 2 Parity 1 11/25/2013 8:10am BP Systolic 106 mmHg BP Diastolic 66 mmHg Height 62 inches 5'2" Weight 138.00 lb BMI (Body Mass Index) 25.2 kg/m2 Last Menstrual Period 6084616 2 Parity 1 08/26/2013 9:17am BP Systolic 104 mmHg BP Diastolic 68 mmHg Height 62 inches 5'2" Weight 138.00 lb BMI (Body Mass Index) 25.2 kg/m2 Last Menstrual Period 7774309 2 Parity 1 07/02/2013 12:43pm BP Systolic 98 mmHg BP Diastolic 64 mmHg Height 62 inches 5'2" Weight 138.00 lb BMI (Body Mass Index) 25.2 kg/m2 Last Menstrual Period 2221260 2 Parity 1 11/20/2012 8:37am BP Systolic 100 mmHg BP Diastolic 66 mmHg Height 62 inches 5'2" Weight 139.00 lb BMI (Body Mass Index) 25.4 kg/m2 Last Menstrual Period 1440660 2 Parity 1 11/17/2011 8:33am BP Systolic 110 mmHg BP Diastolic 60 mmHg Height 62 inches 5'2" Weight 139.00 lb BMI (Body Mass Index) 25.4 kg/m2 Last Menstrual Period 0371915 2 Parity 1 11/18/2010 9:12am BP Systolic 120 mmHg BP Diastolic 70 mmHg Height 62 inches 5'2" Weight 143.00 lb BMI (Body Mass Index) 26.2 kg/m2 Last Menstrual Period 1467869 2 Parity 1 07/09/2009 1:58pm BP Systolic 100 mmHg Height 62 inches 5'2" Weight 150.00 lb BMI (Body Mass Index) 27.4 kg/m2 Last Menstrual Period [id number] 09/17/2008 11:22am BP Systolic 110 mmHg BP Diastolic 82 mmHg Height 62 inches 5'2" Weight 143.00 lb BMI (Body Mass Index) 26.2 kg/m2 Last Menstrual Period [id number] 06/26/2008 10:22am Height 62 inches 5'2" Weight 147.00 lb BMI (Body Mass Index) 26.9 kg/m2 06/16/2008 11:02am BP Systolic 110 mmHg BP Diastolic 66 mmHg Height 62 inches 5'2" Weight 148.00 lb BMI (Body Mass Index) 27.1 kg/m2 Last Menstrual Period [id number] 08/27/2007 9:36am BP Systolic 102 mmHg BP Diastolic 64 mmHg Height 62 inches 5'2" Weight 142.00 lb BMI (Body Mass Index) 26.0 kg/m2 Last Menstrual Period [id number] 11/16/2006 1:13pm BP Systolic 98 mmHg BP Diastolic 52 mmHg Height 62 inches 5'2" Weight 137.00 lb BMI (Body Mass Index) 25.1 kg/m2 Last Menstrual Period [id number] 11/03/2006 3:10pm BP Systolic 110 mmHg BP Diastolic 64 mmHg Height 62 inches 5'2" Weight 136.00 lb BMI (Body Mass Index) 24.9 kg/m2 09/13/2005 9:54am BP Systolic 104 mmHg BP Diastolic 70 mmHg Height 62 inches 5'2" Weight 133.00 lb BMI (Body Mass Index) 24.3 kg/m2 Last Menstrual Period 1423108 Results Test Date Facility Test Result H/L Range Note Laboratory test 03/28/2018 [facility] Cytology <pending> finding ALEX Zepeda [address] [phone] Laboratory test 08/23/2016 [facility] Surgical SEE RESULT benign 1 finding ALEX Zepeda [address] Pathology BELOW polyp [phone] Laboratory test 07/19/2016 [facility] Cytology SEE RESULT 2 finding ALEX Zepeda [address] BELOW [phone] Human Papilloma Virus Rna Negative N Negative 3 Laboratory test 06/03/2015 [facility] Cytology SEE RESULT 4 finding ALEX Zepeda [address] BELOW [phone] Laboratory test 12/04/2014 [facility] Human Negative N Negative 5 finding ALEX Zepeda [address] Papilloma [phone] Virus Rna Cytology SEE RESULT BELOW 6 Laboratory test 10/09/2014 [facility] Non-Tire Service Supervisor Interface SEE RESULT 7 finding ALEX Zpeeda [address] Order BELOW [phone] Laboratory test 11/25/2013 [facility] Cytology RUN DATE: ASCUS 8 finding ALEX Zepeda [address] SEE [phone] NOTE> HPV High Risk 11/25/2013 [facility] Human See Comment N [address] [place] [address] Papillomavirus [phone] Source HPV High Risk Type 16, PCR Negative N Negative HPV High Risk Type 18, PCR Negative N Negative HPV Other Risk types Positive N Negative 10 Laboratory test 08/26/2013 [facility] Genital Culture (SEE NOTE ) [address] [place] [address] [phone] Laboratory test 07/02/2013 [facility] Genital Culture (SEE NOTE ) 12 [place] [address] [phone] Human Papilloma 11/21/2012 [facility] Human See Comment 13 [place] [address] Papillomavirus [phone] Source Human Papillomavirus High Risk Positive Negative 14 Laboratory test 11/20/2012 [facility] Cytology RUN DATE: neg/ +HPV [address] [place] [address] SEE [phone] NOTE> Laboratory test 11/17/2011 [facility] Cytology 16 [place] [address] ----- <SEE [phone] NOTE> Glucose 2HR 12/08/2010 [facility] Fasting 92 mg/dL 70-110 17 Tolerance ([facility] [place] [place] [address] Glucose [phone] 1HR Glucose 132 mg/dL 18 2HR Glucose 119 mg/dL High elevated 19 Laboratory 11/18/2010 [facility] Cytology 20 [place] [address] <SEE NOTE> [phone] Laboratory 09/17/2008 [facility] Cytology 21 [place] [address] <SEE NOTE> [phone] Laboratory 07/21/2008 [facility] BHCG 7.0 MIU/ML High 0- 22 [place] [address] Quantitative 5 [phone] Laboratory 07/09/2008 [facility] BHCG 94.0 MIU/ML High 0- 23 [place] [address] Quantitative 5 [phone] Laboratory 07/03/2008 [facility] BHCG 825.0 MIU/ML High 0- 24 [place] [address] Quantitative 5 [phone] Laboratory 06/26/2008 [facility] BHCG 82091.0 MIU/ML High 0- 25 [place] [address] Quantitative 5 [phone] Genital 06/16/2008 [facility] Genital Culture MODERATE [CANDID [address] [place] [address] <SEE NOTE> [phone] CBC With 04/03/2007 [facility] White Blood 5.9 [place] 4[place] [address] Count 8- Diff Stat [phone] 10 .8 Abs Basophils 0 0-0.2 Abs Eosinophils 0.2 0-0.6 Absolute Neutrophil Count 3.9 1.5-7.7 Abs Lymphs 1.5 1.0-4.8 Abs Mononuclear 0.4 0-0.8 Basophil % 0.5 % 0-2 Hematocrit 42 % 35-47 Hemoglobin 14.7 g/dL 12.0-16.0 Eosinophil % 2.9 % 0-6 Gran % 65.1 % 38-83 Lymph % 25.5 % 20-45 Mean Corpuscular HGB Cone 35 g/dL 32-36 Mean Corpuscular Hemoglob 31 pg 27-31 Mean Corpuscular Volume 88 um3 79-97 Mean Platelet Volume 9.0 um3 7.4-10.4 Mononuclear % 6.0 % 1-9 Platelet Count 202 CUMM 150-450 Red Cell Count 4.74 CUMM 4.2-5.4 Redcell Distribution WDTH 13 % 10.5-15 Basic Metabolic 04/03/2007 [facility] One Over Creatinine 1.25 [place] [address] [phone] Anion Gap 5.0 mmol/L 2-11 27 BUN 18 mg/dL 6-24 Calcium 9.5 mg/dL 8.7-10.2 Chloride 103 mmol/L 101-111 Co2 (Carbon Dioxide) 30.0 mmol/L 22-32 Glucose 95 mg/dL 70-105 Potassium 4.1 mmol/L 3.5-5.0 Sodium 138 mmol/L 135-145 BUN/Creatinine Ratio 22.5 High 8-20 Creatinine 0.8 mg/dL 0.5-1.4 Laboratory test 04/03/2007 [facility] Troponin-I 0.01 NG/ML 0 -0.06 28 finding ALEX Zepeda (TnI) [phone] Laboratory test 11/16/2006 [facility] Urine Culture NG 29 finding ALEX Zepeda50 Sensitivi [phone] Laboratory test 11/07/2006 [facility] Cytology 30 finding ALEX Zepeda [address] ------ [phone] <SEE NOTE> Laboratory test 09/13/2005 [facility] Cytology 31 finding ALEX Zepeda [address] ------ [phone] <SEE NOTE> Laboratory test 01/08/2004 [facility] Hemoglobin A1c 5.0 % < 6.0 32 [place] [address] [phone] Laboratory test 12/25/2003 [facility] Fasting Glucose 133 mg/dL High 70-110 finding [place] [address] [phone] 2HR Glucose 171 mg/dL 33 1HR Glucose 155 mg/dL 34 3HR Glucose 142 mg/dL 35 Urine Culture 10/23/2003 [facility] Urine Culture FINAL: NO 36 Sensitivi ALEX Zepeda [address] Sensitivi GROWTH <SEE [phone] NOTE> Gram Neg Clint 09/12/2003 [facility] Ampicillin <=2 S Sensitivity [place] [address] [phone] Ampicillin/Sublactam <=2 S Amikacin <=2 S Aztreonam <=1 S Ciprofloxacin <=0.25 S Cefotetan <=4 S Ceftriaxone <=1 S Cefazolin <=4 S Cefepime <=1 S Nitrofurantoin <=16 S Gentamicin <=1 S Imipenem <=0.5 S Levofloxacin <=0.25 S Piperacillin <=4 S Cefuroxime 4 S Trimeth-Sulfa <=20 S Ceftazidime <=1 S Ticarcillin-Clav <=8 S Tobramycin <=1 S Piperacillin/Tazobactam <=4 S Urine Culture 09/11/2003 [facility] Urine Culture MANY [address] [place] [address] Sensitivi [ESCHERICHI [phone] <SEE NOTE> Urine Culture 08/05/2003 [facility] Urine Culture FEW [BETA STREP [address] [place] [address] Sensitivi <SEE NOTE> [phone] Laboratory 07/24/2003 [facility] BHCG 22292.0 MIU/ML High 0-5 39 [place] [address] Quantitative [phone] Herpes Simplex 06/10/2003 [facility] HSV 1 Igg < 0.90 EIAUNIT <0. Type 1&2 [place] [address] 90 [phone] HSV 2 Igg < 0.90 EIAUNIT <0.90 40 Herpes 06/10/2003 [facility] Herpes NOT DETECTED Not Detect 41 [place] [address] Simplex 1 1&2 Igm [phone] 2 Igm 1 SEE RESULT BELOW Name: JACKIE BOWER : [address]: Marni Alfaro MD Acct: [id number] Unit: [id number] AGE: 51 Location: [facility] Re08/23/16 SEX: F Status: REG REF SPEC: [id number] ELIZABETH: 08/23/16-[address]: Marni Alfaro MD REQ: [id number] RECD: 08/24/16-1142 STATUS: SOUT _ ORDERED: LEVEL 4 COMMENTS: [id number] FINAL DIAGNOSIS Uterus, cervix, biopsy: -- Benign endocervical polyp. CLINICAL HISTORY Polyp of cervix GROSS DESCRIPTION The specimen is received in formalin labeled, Polyp, and consists of a 2.2 x 1.8 x 0.5 cm aggregate of jensen-white irregular rubbery soft tissue fragments admixed with red-brown blood clot and mucus. The specimen is filtered and entirely submitted in one cassette. Signed (signature on file) Mendez Bah MD 9579 END OF REPORT * ML=Testing performed at Main Lab DEPARTMENT OF PATHOLOGY, [address] [place] [address] Mendez Bah M.D. Director [facility] # [id number] 2 SEE RESULT BELOW Name: JACKIE BOWER : [address]: Marni Alfaro MD Acct: [id number] Unit: [id number] AGE: 50 Location: [facility] Re07/19/16 SEX: F Status: REG REF SPEC: [id number] ELIZABETH: 07/19/16 [facility] DR: Marni Alfaro MD REQ: [id number] RECD: 07/19/16 STATUS: SOUT _ ORDERED: TP IMAGE ANAL, HPV/Thin Prep COMMENTS: [id number] FINAL DIAGNOSIS Negative for Intraepithelial lesion or Malignancy A. Ectocervical/Endocervical Specimen Adequacy: Satisfactory of evaluation Transformation zone component identified Patient Information: HPV: High risk HPV RNA testing regardless of pap results. Actual Specimen Date: 07/19/16 Last Menstrual Date: 07/02/16 Date of Last Specimen: 06/03/15 Date Time Test Result Flag (u) Normal Range 07/19/16 0944 HPV RNA Negative Negative The high-risk HPV types detected by the assay include: 16, 18, 31, 33, 35, 39, 45, 51, 52, 56, 58, 59, 66, and 68. Signed (signature on file) TYRELL Robb (ASCP) 07/20 1426 This Pap test was evaluated with the assistance of the eFuneralPrep Test Imaging System. Due to cytologic findings at the food services coordinator microscope, comprehensive manual rescreening by a Drafter Marine may be required. The Pap Smear is a screening test designed to aid in the detection of premalignant and malignant conditions of the uterine cervix. It is not a diagnostic procedure and should not be used as the sole means of detecting cervical cancer. Both false- positive and false- negative reports do occur. Depending on your risk status, a Pap smear should be obtained and evaluated every 1-3 years. END OF REPORT * ML=Testing performed at Main Lab DEPARTMENT OF PATHOLOGY, [address] [place] [address] Mendez Bah M.D. Director [facility] # [id number] 3 The high-risk HPV types detected by the assay include: 16, 18, 31, 33, 35, 39, 45, 51, 52, 56, 58, 59, 66, and 68. 4 SEE RESULT BELOW Name: JACKIE BOWER : [address]: Ena Fatima NP Acct: [id number] Unit: [id number] AGE: 49 Location: [facility] Re06/03/15 SEX: F Status: REG REF SPEC: [id number] ELZIABETH: 06/03/1535 [facility] DR: Ena Fatima ENTRY LEVEL RECEPTIONIST REQ: [id number] RECD: 06/03/15 STATUS: SOUT _ ORDERED: IMAGE ANALYSIS FINAL DIAGNOSIS Negative for Intraepithelial lesion or Malignancy Fungal organisms morphologically consistent with Siena species A. Ectocervical/Endocervical Specimen Adequacy: Satisfactory of evaluation Transformation zone component identified Patient Information: HPV: Thin Layer Pap Test w/reflex to high risk HPV RNA testing when ASCUS Actual Specimen Date: 06/03/15 Last Menstrual Date: 05/11/15 Date of Last Specimen: 12/04/14 ?: N Signed (signature on file) TYRELL Robb (ASCP) 06/03 1309 This Pap test was evaluated with the assistance of the FlyBridGe Test Imaging System. Due to cytologic findings at the food services coordinator microscope, comprehensive manual rescreening by a Drafter Marine may be required. The Pap Smear is a screening test designed to aid in the detection of premalignant and malignant conditions of the uterine cervix. It is not a diagnostic procedure and should not be used as the sole means of detecting cervical cancer. Both false- positive and false- negative reports do occur. Depending on your risk status, a Pap smear should be obtained and evaluated every 1-3 years. END OF REPORT * ML=Testing performed at Main Lab DEPARTMENT OF PATHOLOGY, [address], [place], [place] [address] Mendez Bah M.D. Director [facility] # [id number] 5 The high-risk HPV types detected by the assay include: 16, 18, 31, 33, 35, 39, 45, 51, 52, 56, 58, 59, 66, and 68. 6 SEE RESULT BELOW Name: JACKIE BOWER : [address]: Marni Alfaro MD Acct: [id number] Unit: [id number] AGE: 49 Location: [facility] Re12/04/14 SEX: F Status: REG REF SPEC: [id number] ELIZABETH: 12/04/1452 [facility] DR: Marni Alfaro MD REQ: [id number] RECD: 12/04/14 STATUS: SOUT _ ORDERED: IMAGE ANALYSIS, PAP SM PATH REV, HPV/Thin Prep FINAL DIAGNOSIS Please Repeat COMMENTS: Lubricant-like material (personal use versus used during examination) present hampering specimen cellularity. Lubricant use is not recommended. A. Ectocervical/Endocervical Specimen Adequacy: Unsatisfactory for evaluation Insufficient epithelial component Patient Information: HPV: High risk HPV RNA testing regardless of pap results. Actual Specimen Date: 12/04/14 Last Menstrual Date: 11/16/14 Date of Last Specimen: 11/25/13 Previous Abnormal Pap Smears?:Y If Yes, enter Diagnosis: Atypical Squamous cells of uncertain significance Positive HPV Date Time Test Result Flag (u) Normal Range 12/04/14 0852 HPV RNA Negative Negative The high-risk HPV types detected by the assay include: 16, 18, 31, 33, 35, 39, 45, 51, 52, 56, 58, 59, 66, and 68. Signed (signature on file) Mendez Bah MD 1252 This Pap test was evaluated with the assistance of the eFuneralPrep Test Imaging System. Due to cytologic findings at the food services coordinator microscope, comprehensive manual rescreening by a Drafter Marine may be required. The Pap Smear is a screening test designed to aid in the detection of premalignant and malignant conditions of the uterine cervix. It is not a diagnostic procedure and should not be used as the sole means of detecting cervical cancer. Both false- positive and false- negative reports do occur. Depending on your risk status, a Pap smear should be obtained and evaluated every 1-3 years. END OF REPORT RUN DATE: 12/08/14 [facility] LAB LIVE PAGE 1 Patient: JACKIE BOWER [id number] (Continued) * ML=Testing performed at Main Lab DEPARTMENT OF PATHOLOGY, [address] [place] [address] Mendez Bah M.D. Director [facility] # [id number] 7 SEE RESULT BELOW Name: JACKIE BOWER : [address]: Page Jimenez MD Acct: [id number] Unit: [id number] AGE: 49 Location: [facility] Re10/09/14 SEX: F Status: REG REF SPEC: [id number] ELIZABETH: 10/09/14-1115 [facility] DR: Page Jimenez MD REQ: [id number] RECD: 10/09/14 STATUS: SARAH ANDRADE DR: Zuleika De La Rosa RN BONE MARROW TRANSPLANT _ ORDERED: FN ASP SUPERFIC FINAL DIAGNOSIS Breast, right, fine needle aspiration: Cyst contents. COMMENT: There is no evidence of malignancy in the sampled specimen. Clinical and radiologic correlation is recommended. BREAST RIGHT - fine needle aspiration CLINICAL HISTORY Right breast lump GROSS DESCRIPTION Needle rinse in Cytolyt solution for thin layer non-sweatband maker test. Signed (signature on file) Nikkie Bryant MD 09/17 1556 END OF REPORT * ML=Testing performed at Main Lab DEPARTMENT OF PATHOLOGY, [facility] [address] [place], [place] [address] Mendez Bah M.D. Director [facility] # [id number] 8 RUN DATE: 11/25/13 [facility] LAB LIVE PAGE 1 RUN TIME: [address] [place], [place] [address] Specimen Inquiry Name: JACKIE BOWER : [address]: Zuleika De La Rosa RN BONE MARROW TRANSPLANT Acct: [id number] Unit: [id number] AGE: 48 Location: [facility] Re11/25/13 SEX: F Status: REG REF SPEC: [id number] ELIZABETH: 11/25/13-[address]: Zuleika De La Rosa RN BONE MARROW TRANSPLANT REQ: [id number] RECD: 11/25/13-110 STATUS: SOUT _ ORDERED: IMAGE ANALYSIS, PAP SM PATH REV, HPV/Thin Prep FINAL DIAGNOSIS EPITHELIAL CELL ABNORMALITIES Atypical squamous cells of undetermined significance HPV Reflexed, Results will be available as separate report COMMENTS: Specimen sent to [facility] in [place], [place] on 11/25/13 by [id number] at 1408. Results will be reported separately. A. Ectocervical/Endocervical Specimen Adequacy: Satisfactory of evaluation Transformation zone component identified Patient Information: HPV: Thin Layer Pap Test w/reflex to high risk HPV DNA testing when ASCUS Actual Specimen Date: 11/25/13 Last Menstrual Date: 11/18/13 Date of Last Specimen: 11/20/12 Signed (signature on file) Nikkie Bryant MD 1706 This Pap test was evaluated with the assistance of the ThinPrep Test Imaging System. Due to cytologic findings at the food services coordinator microscope, comprehensive manual rescreening by a Drafter Marine may be required. The Pap Smear is a screening test designed to aid in the detection of premalignant and malignant conditions of the uterine cervix. It is not a diagnostic procedure and should not be used as the sole means of detecting cervical cancer. Both false- positive and false- negative reports do occur. Depending on your risk status, a Pap smear shoudl be obtained and evaluated every 1-3 years. END OF REPORT * ML=Testing performed at Main Lab DEPARTMENT OF PATHOLOGY, [address] [place] [address] Mendez Bah M.D. Director [facility] # [id number] RESULT: Ectocervical/Endocervical 10 Positive for one or more of the following Other High Risk HPV types: 31, 33, 35, 39, 45, 51, 52, 56, 58, 59, 66, and 68 Test Performed by: [place] [address] Mirror Painter: Kuldeep Alejandro III, M.D. 11 RUN DATE: 08/28/13 [facility] LAB LIVE PAGE 1 RUN TIME: [address] [place] [address] Specimen Inquiry Name: JACKIE BOWER : [address]: Zuleika De La Rosa CNP Acct: [id number] Unit: [id number] AGE: 48 Location: [facility] Re08/26/13 SEX: F Status: REG REF SPEC: [id number] ELIZABETH: 08/26/13-46 [facility] DR: Zuleika De La Rosa CNP REQ: [id number] RECD: 08/26/136209 STATUS: COMP _ SOURCE: CERVIX SPDESC: ORDERED: Genital Culture QUERIES: Medent Number [id number] Procedure Result Verified Site Genital Culture Final 08/28/13- 1201 ML Organism 1 NORMAL VJ Quantity 3+ END OF REPORT * ML=Testing performed at Main Lab DEPARTMENT OF PATHOLOGY, [address] [place] [address] Mendez Bah M.D. Director [facility] # [id number] 12 RUN DATE: 07/04/13 [facility] LAB LIVE PAGE 1 RUN TIME: 1154 [address] [place], [place] [address] Specimen Inquiry Name: JACKIE BOWER : [address]: Zuleika De La Rosa RN BONE MARROW TRANSPLANT Acct: [id number] Unit: [id number] AGE: 47 Location: [facility] Re07/02/13 SEX: F Status: REG REF SPEC: [id number] ELIZABETH: 07/02/13-[address]: Zuleika De La Rosa RN BONE MARROW TRANSPLANT REQ: [id number] RECD: 07/02/13 STATUS: COMP _ SOURCE: CERVIX SPDESC: ORDERED: Genital Culture QUERIES: Medent Number [id number] Procedure Result Verified Site Genital Culture Final 07/04/13- 1155 ML Organism 1 YEAST Quantity 2+ Organism 2 NORMAL VJ Quantity 3+ END OF REPORT * ML=Testing performed at Main Lab DEPARTMENT OF PATHOLOGY, [facility] [address] [place], [place] [address] Mendez Bah M.D. Director [facility] Permit #[id number] RESULT: Ectocervical/Endocervical 14 For one or more of types 16, 18, 31, 33, 35, 39, 45, 51, 52, 56, 58, 59 and 68. These high/intermediate risk HPV types are associated with dysplasia and some cervical cancers. Test Performed by: [address] [address] Mirror Painter: Kuldeep Alejandro III, M.D. 15 RUN DATE: 11/21/12 [facility] LAB LIVE PAGE 1 RUN TIME: 7510 [facility] [employer] [place], [place] [address] Specimen Inquiry Name: JACKIE BOWER : [address]: Zuleika De La Rosa CNP Acct: [id number] Unit: [id number] AGE: 47 Location: [facility] Re11/20/12 SEX: F Status: REG REF SPEC: [id number] ELIZABETH: 11/20/1248 [facility] DR: Zuleika De La Rosa RN BONE MARROW TRANSPLANT REQ: [id number] RECD: 11/20/12 STATUS: SOUT _ ORDERED: IMAGE ANALYSIS, PAP SM PATH REV, HPV/Thin Prep FINAL DIAGNOSIS Negative for Intraepithelial lesion or Malignancy Reactive cellular changes associated with Inflammation (includes typical repair) Specimen sent to [facility] in [place], [place] on 11/21/12 by [id number] at 1039. Results will be reported separately. COMMENTS: A. Ectocervical/Endocervical Specimen Adequacy: Satisfactory of evaluation Transformation zone component identified Patient Information: HPV: High risk HPV DNA testing regardless of pap results. Actual Specimen Date: 11/20/12 Last Menstrual Date: 10/28/12 Date of Last Specimen: 11/17/11 Signed (signature on file) Nikkie Bryant MD 1631 This Pap test was evaluated with the assistance of the ThinPrep Test Imaging System. Due to cytologic findings at the food services coordinator microscope, comprehensive manual rescreening by a Drafter Marine may be required. The Pap Smear is a screening test designed to aid in the detection of premalignant and malignant conditions of the uterine cervix. It is not a diagnostic procedure and should not be used as the sole means of detecting cervical cancer. Both false- positive and false- negative reports do occur. Depending on your risk status, a Pap smear shoudl be obtained and evaluated every 1-3 years. END OF REPORT * ML=Testing performed at Main Lab DEPARTMENT OF PATHOLOGY, [address] [place] [address] Mendez Bah M.D. [facility] Permit #[id number] ---- RUN DATE: 11/18/11 [facility] NMI LIVE PAGE 1 RUN TIME: 1457 Specimen Inquiry RUN USER: INTERFACE -- Name: JACKIE BOWER Status: REG REF Re11/17/11 Age/Sex: 46/F Unit#: [id number] Location: [facility] : 65 -- Specimen: [id number] SOUT Spec Date:11/17/11-[address] [facility] [address]: Hank Bowen MD Spec Type: CYTOLOGY Received:11/17/11-1349 Copies to: SOURCE ECTOCERVICAL/ENDOCERVICAL Thin Prep with Reflex HPV Test PATIENT INFORMATION ACTUAL COLLECTION DATE: 11/17/11 LAST MENSTRUAL PERIOD: 10/25/11 DATE OF PRIOR SPECIMEN: 11/18/10 ADEQUACY OF SPECIMEN Satisfactory for evaluation * Transformation zone component identified * DIAGNOSIS NEGATIVE FOR INTRAEPITHELIAL LESION OR MALIGNANCY * Reactive cellular changes associated with * Inflammation (includes typical repair) * This Pap test was evaluated with the assistance of the eFuneralPrep Pap Test Imaging System. Due to cytologic findings at the food services coordinator microscope, comprehensive manual rescreening by a Drafter Marine was required. The Pap Smear is a screening test designed to aid in the detection of premalign ant and malignant conditions of the uterine cervix. It is not a diagnostic procedure a nd should not be used as the sole means of detecting cervical cancer. Both false- positiv e and false-negative reports do occur. Depending on your risk status, a Pap smear jd uld be obtained and evaluated every one to three years. Initial evaluation performed by Haile CASTLE([facility]) 11/18/11 Final Interpretation electronically signed by: DARON COX 11/18/11 1457 -- DEPARTMENT OF PATHOLOGY, [address] [place] [address] [facility] Permit #[id number] Mendez Bah M.D. Director Daron Cox M.D. Remedial Teacher Dir sharlene -- 17 2HR GTT 1HR SERUM 1HR GLUCOSE from 1005:[id number]. 2HR GTT FAST SERUM FASTING GLUCOSE from 1005:[id number]. 2HR GTT 2HR SERUM 2HR GLUCOSE from 1005:[id number]. 18 REFERENCE RANGE: 20-50 MG/DL ABOVE FASTING 19 REFERENCE RANGE: 5-15 MG/DL ABOVE FASTING 20 ---- RUN DATE: 11/19/10 [facility] NMI LIVE PAGE 1 RUN TIME: 1306 Specimen Inquiry RUN USER: INTERFACE -- Name: JACKIE BOWER Status: REG REF Re11/18/10 Age/Sex: 45/F Unit#: [id number] Location: [facility] : 65 -- Specimen: [id number] Spec Date: 11/18/[address]: Zuleika Espinoza mp RN BONE MARROW TRANSPLANT Spec Type: CYTOLOGY Received: 11/19/10-1019 Copies to: SOURCE ECTOCERVICAL/ENDOCERVICAL Thin Prep with Reflex HPV Test PATIENT INFORMATION ACTUAL COLLECTION DATE: 11/18/10 LAST MENSTRUAL PERIOD: 10/18/10 DATE OF PRIOR SPECIMEN: 09/17/08 ADEQUACY OF SPECIMEN Satisfactory for evaluation * Transformation zone component identified * DIAGNOSIS NEGATIVE FOR INTRAEPITHELIAL LESION OR MALIGNANCY * This Pap test was evaluated with the assistance of the eFuneralPrep Pap Test Imaging System. The Pap Smear is a screening test designed to aid in the detection of premalign ant and malignant conditions of the uterine cervix. It is not a diagnostic procedure a nd should not be used as the sole means of detecting cervical cancer. Both false- positiv e and false-negative reports do occur. Depending on your risk status, a Pap smear jd uld be obtained and evaluated every one to three years. Initial evaluation performed by Paulino DELGADO([facility]) 11/19/10 Final Interpretation electronically signed by: Paulino DELGADO([facility]) 11/19/10 1305 -- -- DEPARTMENT OF PATHOLOGY, [address] [place] [address] [facility] Permit #[id number] Bernard Kent M.D. Remedial Teacher Dir sharlene -- 21 ---- RUN DATE: 09/18/08 [facility] NMI LIVE PAGE 1 RUN TIME: 1709 Specimen Inquiry RUN USER: INTERFACE -- Name: JACKIE BOWER Status: REG REF Re09/17/08 Age/Sex: 43/F Unit#: [id number] Location: [facility] : 65 -- Specimen: [id number] SOUT Spec Date: 09/17/[address]: Uma porter NP Spec Type: CYTOLOGY Received: 09/18/08 Copies to: SOURCE ECTOCERVICAL/ENDOCERVICAL Thin Prep with Reflex HPV Test PATIENT INFORMATION ACTUAL COLLECTION DATE: 09/17/08 DATE OF PRIOR SPECIMEN: 08/27/07 PATIENT HISTORY: normal, Last menstrual period not given. ADEQUACY OF SPECIMEN Satisfactory for evaluation * Transformation zone component identified * DIAGNOSIS NEGATIVE FOR INTRAEPITHELIAL LESION OR MALIGNANCY * Reactive cellular changes associated with * Inflammation (includes typical repair) * Endometrial cells in a woman over or equal to 40 years of age * See note. NOTE Endometrial cells after age 40, particularly out of phase or after menopause may be associated with benign endometrium, hormonal alterations and less commonly, endometrial/uterine abnormalities. Clinical correlation is recommended. This Pap test was evaluated with the assistance of the ThinPrep Pap Test Imaging System. Due to cytologic findings at the food services coordinator microscope, comprehensive manual rescreening by a Drafter Marine was required. -- DEPARTMENT OF PATHOLOGY, [address] [place] [address] [facility] Permit #[id number] Mendez Bah M.D. Director Daron Cox M.D. Remedial Teacher sharlene -- -- RUN DATE: 09/18/08 [facility] NMI LIVE PAGE 2 RUN TIME: 1709 Specimen Inquiry RUN USER: INTERFACE -- Name: JACKIE BOWER Status: REG REF Re09/17/08 Age/Sex: 43/F Unit#: [id number] Location: [facility] : 65 -- -- CONTINUED -- The Pap Smear is a screening test designed to aid in the detection of premalign ant and malignant conditions of the uterine cervix. It is not a diagnostic procedure a nd should not be used as the sole means of detecting cervical cancer. Both false- positiv e and false-negative reports do occur. Depending on your risk status, a Pap smear jd uld be obtained and evaluated every one to three years. Initial evaluation performed by Haile CASTLE([facility]) 09/18/08 Final Interpretation electronically signed by: DARON COX 09/18/08 1709 -- -- DEPARTMENT OF PATHOLOGY, [address] [place] [address] [facility] Permit #[id number] Mendez Bah M.D. Director Daron Cox M.D. Remedial Teacher Dir sharlene -- 22 * MALES: < 5.0 MIU/ML NON FEMALES < 5.0 MIU/ML APPROX GESTATIONAL AGE APPROX HCG RANGE 0-1 WEEK < 5.0-50 1-2 WEEKS 50-500 2-3 WEEKS 100-5000 3-4 WEEKS 500-10,000 1-2 MONTHS 10,000-200,000 2-3 MONTHS 15,000-100,000 PLEASE NOTE: The intended use of this assay is the quantitative determination of HCG in human serum or plasma for the early detection of . These assays should not be used to diagnose any condition unrelated to . If an HCG level is inconsistent with, or unsupported by, clinical evidence, results should be confirmed by an alternate HCG method. . 23 * MALES: < 5.0 MIU/ML NON FEMALES < 5.0 MIU/ML APPROX GESTATIONAL AGE APPROX HCG RANGE 0-1 WEEK < 5.0-50 1-2 WEEKS 50-500 2-3 WEEKS 100-5000 3-4 WEEKS 500-10,000 1-2 MONTHS 10,000-200,000 2-3 MONTHS 15,000-100,000 PLEASE NOTE: The intended use of this assay is the quantitative determination of HCG in human serum or plasma for the early detection of . These assays should not be used to diagnose any condition unrelated to . If an HCG level is inconsistent with, or unsupported by, clinical evidence, results should be confirmed by an alternate HCG method. . 24 * MALES: < 5.0 MIU/ML NON FEMALES < 5.0 MIU/ML APPROX GESTATIONAL AGE APPROX HCG RANGE 0-1 WEEK < 5.0-50 1-2 WEEKS 50-500 2-3 WEEKS 100-5000 3-4 WEEKS 500-10,000 1-2 MONTHS 10,000-200,000 2-3 MONTHS 15,000-100,000 PLEASE NOTE: The intended use of this assay is the quantitative determination of HCG in human serum or plasma for the early detection of . These assays should not be used to diagnose any condition unrelated to . If an HCG level is inconsistent with, or unsupported by, clinical evidence, results should be confirmed by an alternate HCG method. . 25 * MALES: < 5.0 MIU/ML NON FEMALES < 5.0 MIU/ML APPROX GESTATIONAL AGE APPROX HCG RANGE 0-1 WEEK < 5.0-50 1-2 WEEKS 50-500 2-3 WEEKS 100-5000 3-4 WEEKS 500-10,000 1-2 MONTHS 10,000-200,000 2-3 MONTHS 15,000-100,000 PLEASE NOTE: The intended use of this assay is the quantitative determination of HCG in human serum or plasma for the early detection of . These assays should not be used to diagnose any condition unrelated to . If an HCG level is inconsistent with, or unsupported by, clinical evidence, results should be confirmed by an alternate HCG method. . 26 MODERATE [SIENA ALBICANS] WITH NORMAL GENITAL VJ SIENA ALBICANS 27 Anion gap measurement may be of limited value in the presence of any alkalosis, especially in a combined acid base disorder. . 28 New Reference Range and Interpretation effective 12/07/01 TnI (ng/ml) INTERPRETATION <0.06 ng/ml NOT SUPPORTIVE OF DIAGNOSIS OF VA 0.06 - 0.50 ng/ml INDETERMINATE: SUGGEST SERIAL STUDIES IF CLINICALLY INDICATED. > 0.5 ng/ml CONSISTENT WITH DIAGNOSIS OF VA . 29 FINAL: NO GROWTH DAY 2 (<1,000 CFU/mL) 30 ---- RUN DATE: 11/09/06 [facility] NMI LIVE PAGE 1 RUN TIME: 1431 Specimen Inquiry RUN USER: INTERFACE [id number] JACKIE BOWER 41/F <REG REF 11/07> ([id number]) SHEMAR Can CNM,Suzanna -- Specimen: [id number] SOUT Spec Date: 11/07/06 Dk Fung: Suzanna vizcaino CNM Spec Type: CYTOLOGY Received: 11/08/06-1150 Copies to: SOURCE ECTOCERVICAL/ENDOCERVICAL Thin Prep with Reflex HPV Test PATIENT INFORMATION ACTUAL COLLECTION DATE: 11/07/06 ? NO ADEQUACY OF SPECIMEN Satisfactory for evaluation * Transformation zone component identified * DIAGNOSIS NEGATIVE FOR INTRAEPITHELIAL LESION OR MALIGNANCY * This Pap test was evaluated with the assistance of the ThinPrep Pap Test Imaging System. The Pap Smear is a screening test designed to aid in the detection of premalign ant and malignant conditions of the uterine cervix. It is not a diagnostic procedure a nd should not be used as the sole means of detecting cervical cancer. Both false- positive and false-negative reports do occur. Depending on your risk status, a Pap smear jd uld be obtained and evaluated every one to three years. Initial evaluation performed by Paulino DELGADO([facility]) 11/09/06 Final Interpretation electronically signed by: Paulino DELGADO([facility]) 11/09/06 1430 -- -- DEPARTMENT OF PATHOLOGY, [address] [place] [address] [facility] Permit #[id number] Mendez Bah M.D. Director of Laboratories Kee Coelho II, M.D . Pathologist -- 31 ---- RUN DATE: 09/19/05 [facility] NMI TEST PAGE 1 RUN TIME: 817 Specimen Inquiry RUN USER: INTERFACE [id number] ROBBYSOFYJACKIE PATEL 40/F <REG REF 09/13> ([id number]) Kentrell HOFFMAN CNM. -- Specimen: [id number] SOUT Spec Date: 09/13/[address]: Kentrell Mckinley CNM . Spec Type: CYTOLOGY Received: 09/16/05-1053 Copies to: SOURCE ECTOCERVICAL/ENDOCERVICAL Thin Prep with Reflex HPV Test PATIENT INFORMATION ACTUAL COLLECTION DATE: 09/13/05 PREVIOUS ABNORMAL PAP SMEARS No LAST MENSTRUAL PERIOD: 08/13/05 DATE OF PRIOR SPECIMEN: 09/09/04 PREVIOUS CYTOLOGY/SURGICAL SPECIMEN #: [id number] ADEQUACY OF SPECIMEN Satisfactory for evaluation * Transformation zone component identified * DIAGNOSIS NEGATIVE FOR INTRAEPITHELIAL LESION OR MALIGNANCY * The Pap Smear is a screening test designed to aid in the detection of premalign ant and malignant conditions of the uterine cervix. It is not a diagnostic procedure an d should not be used as the sole means of detecting cervical cancer. Both false-positive and false-negative reports do occur. Depending on your risk status, a Pap smear jd uld be obtained and evaluated every one to three years. Signed Paulino DELGADO([facility]) 09/19/05 -- -- DEPARTMENT OF PATHOLOGY, [address] [place] [address] [facility] Permit #[id number] Kee Coelho II, M.D. Director Mendez Bah M.D. Assistant Haile jiménezctor -- 32 THERAPEUTIC TARGET FOR THE TREATMENT OF DIABETES MELLITUS PATIENTS IS <7% HBA1C. [place] DIABETES CARE 2002;25:S33-S49. 33 REFERENCE RANGE: 5-15 MG/DL ABOVE FASTING 34 REFERENCE RANGE: 20-50 MG/DL ABOVE FASTING 35 REFERENCE RANGE: FASTING OR 10 MG/DL BELOW 36 FINAL: NO GROWTH DAY 2 37 MANY [ESCHERICHIA COLI] ESCHERICHIA COLI 38 FEW [BETA STREP GROUP B] - SENSITIVITY NOT INDICATED BETA STREP GROUP B 39 * MALES: < 5.0 MIU/ML NON FEMALES < 5.0 MIU/ML APPROX GESTATIONAL AGE APPROX HCG RANGE 0-1 WEEK < 5.0-50 1-2 WEEKS 50-500 2-3 WEEKS 100-5000 3-4 WEEKS 500-10,000 1-2 MONTHS 10,000-200,000 2-3 MONTHS 15,000-100,000 PLEASE NOTE: The intended use of this assay is the quantitative determination of HCG in human serum or plasma for the early detection of . These assays should not be used to diagnose any condition unrelated to . If an HCG level is inconsistent with, or unsupported by, clinical evidence, results should be confirmed by an alternate HCG method. . 40 REFERENCE RANGE FOR HERPES SIMPLEX VIRUS (HSV) ABS: LESS THAN 0.90 EIA UNITS . . . . NOT DETECTED 0.90 - 1.10 EIA UNITS . . . . . INDETERMINATE GREATER THAN 1.10 EIA UNITS . . DETECTED TEST PERFORMED BY: [employer] [address] [place] [id number] CLIA #[id number] TEST PERFORMED BY: [employer] [address] [place] [id number] CLIA #[id number] Procedures Date Code Description Status 09/05/2017 [id number] Colonoscopy Completed 08/28/2017 [id number] Mammogram Completed 12/25/2013 45822 Echography Transvaginal Completed 08/26/2013 30084 Echography Transvaginal Completed 06/26/2008 60392 OB Ultrasound First Trimester Completed 04/16/2004 53983 Care Only Completed 03/31/2004 92883 Care Only Completed 03/17/2004 99146 Obstetric Care Routine Completed 03/16/2004 49107 Non-Stress Test Completed 03/12/2004 76433 Care Completed 03/08/2004 22736 Care Completed 02/24/2004 00268 Care Completed 02/19/2004 45633 Echography Uterus Complete Completed 02/05/2004 65440 Care Completed 01/28/2004 42394 Care Completed 01/21/2004 81550 Care Completed 01/14/2004 06729 Care Completed 10/21/2003 89536 Care Completed 09/30/2003 12565 Care Completed 09/11/2003 02646 Care Completed 08/01/2003 77865 Care Completed Encounters Type Date Location Provider Dx Diagnosis Office Visit 03/28/2018 [facility] Office Marni Alfaro, Z01.419 Encntr for sweatband maker exam 1:00p (general) (routine) w/o abn findings Office Visit 08/23/2016 [facility] Marni Alfaro, N84.1 Polyp of cervix 11:30a MD uteri Office Visit 07/19/2016 [facility] Marni Alfaro, Z01.411 Encntr for sweatband maker exam 9:00a (general) (routine) w abnormal findings N84.1 Polyp of cervix uteri N39.3 Stress incontinence (female) (male) D25.1 Intramural leiomyoma of uterus Office Visit 06/03/2015 8:00a [facility] Ena Fatima, DIXIE B37.3 Candidiasis of vulva and vagina Z12.4 Encounter for screening for malignant neoplasm of cervix Office Visit 12/04/2014 8:00a [facility] Marni Alfaro, Z01.419 Encntr for sweatband maker MD exam (general) (routine) w/o abn findings Z12.4 Encounter for screening for malignant neoplasm of cervix N64.59 Other signs and symptoms in breast Office Visit 07/04/2014 1:00p [facility] Marni Alfaro, 616.11 Vaginitis & MD Vulvovaginitis In Diseases Class Elsewhere Office Visit 12/25/2013 8:20a [facility] Zuleika De La Rosa, 218.9 Leiomyoma Uterus ANP-C Unspec Office Visit 11/25/2013 8:20a [facility] Zuleika De La Rosa, V72.31 Routine Tire Service Supervisor ANP-C Examination V76.2 Screening Malignant Neoplasm Cervix 789.9 Abdomen & Pelvis Symptoms Other Office Visit 08/26/2013 9:40a [facility] Zuleika De La Rosa, 616.11 Vaginitis & ANP-C Vulvovaginitis In Diseases Class Elsewhere 789.9 Abdomen & Pelvis Symptoms Other Office Visit 07/02/2013 1:00p [facility] Zuleika De La Rosa, 616.11 Vaginitis & ANP-C Vulvovaginitis In Diseases Class Elsewhere 789.9 Abdomen & Pelvis Symptoms Other Office Visit 11/20/2012 8:40a [facility] Zuleika De La Rosa, V72.31 Routine Tire Service Supervisor ANP-C Examination V76.2 Screening Malignant Neoplasm Cervix Office Visit 11/17/2011 8:30a [facility] Hank Bowen V72.31 Routine Tire Service Supervisor M.D. Examination 611.79 Breast Signs & Symptoms Other 648.04 Diabetes Mellitus Cond Or Compl V76.2 Screening Malignant Neoplasm Cervix Office Visit 11/18/2010 9:20a [facility] Zuleika De La Rosa, V72.31 Routine Tire Service Supervisor ANP-C Examination V76.2 Screening Malignant Neoplasm Cervix Office Visit 07/09/2009 2:00p [place] [facility] Delma Chaidez, 616.11 Vaginitis & Suite Q CNM Vulvovaginitis In Diseases Class Elsewhere V76.41 Screening Malignant Neoplasm Rectum Office Visit 09/17/2008 11:20a [facility] Uma Jensen V72.31 Routine Tire Service Supervisor ENTRY LEVEL RECEPTIONIST, CNM Examination V76.2 Screening Malignant Neoplasm Cervix V26.41 Procreative Counseling & Advice Using Natural Family Plan Office Visit 06/26/2008 10:40a [facility] Zuleika De La Rosa, 640.00 Threatened ANP-C Episode Of Care Unspec Or N/A Office Visit 06/16/2008 9:40a [facility] Zuleika De La Rosa, 616.10 Vaginitis & ANP-C Vulvovaginitis Unspec 626.0 Menstruation Absence 784.1 Throat Pain Office Visit 08/27/2007 9:40a [facility] Suzanna Can V72.31 Routine Tire Service Supervisor CNM Examination V76.2 Screening Malignant Neoplasm Cervix V26.9 Procreative Management Unspec V16.3 History Family Malignant Neoplasm Breast Office Visit 11/16/2006 1:00p [facility] Suzanna Can, 616.10 Vaginitis & CNM Vulvovaginitis Unspec Office Visit 11/03/2006 3:00p [facility] Suzanna Can, 346.10 Migraine Common W/O CNM Intractable W/O Status Migrainosus V26.4 Procreative Management General Counseling & Advice V72.31 Routine Tire Service Supervisor Examination V76.2 Screening Malignant Neoplasm Cervix Office Visit 04/26/2006 [facility] Briseno Can, 616.10 Vaginitis & 3:00p CNM Vulvovaginitis Unspec Office Visit 04/03/2006 [facility] Heather Zuniga CNM 623.9 Vaginal Disorder 3:00p Noninflammatory Unspec Office Visit 03/17/2005 [facility] Kentrell Mckinley C.N.M. 112.9 Candidiasis Unspec 9:00a Site 784.1 Throat Pain 462 Pharyngitis Acute Office Visit 12/07/2004 10:00a [facility] Zuleika De La Rosa, 616.10 Vaginitis & ANP-C Vulvovaginitis Unspec Office Visit 09/09/2004 9:40a [facility] Kentrell Mckinley V72.31 Routine Tire Service Supervisor C.N.M. Examination V78.0 Screening Iron Deficiency Anemia Office Visit 09/02/2004 8:45a [facility] Zuleika De La Rosa, 616.10 Vaginitis & ANP-C Vulvovaginitis Unspec Office Visit 03/26/2004 3:00p [facility] Kentrell Mckinley 616.10 Vaginitis & C.N.M. Vulvovaginitis Unspec Office Visit 07/16/2003 1:15p [facility] Zuleika De La Rosa, 112.9 Candidiasis Unspec ANP-C Site V72.4 Examination Or Test Unconfirmed Office Visit 06/19/2003 9:45a [facility] Zuleika De La Rosa, 616.10 Vaginitis & ANP-C Vulvovaginitis Unspec Office Visit 06/10/2003 1:15p [facility] Zuleika De La Rosa 616.10 Vaginitis & ANP-C Vulvovaginitis Unspec 599.9 Urethra & Urinary Tract Unspec Disorder Plan of Treatment 03/28/2018 - Marni Alfaro MDZ01.419 Encounter for gynecological examination (general) (routine) without abnormal findingsComments:Maintain routine exercise and healthy diet. Incorporate weight bearing exercise (walking/running with weights) to help prevent osteoporosis. Try to incorporate calcium into your regular diet. Take Vitamin D supplementation(600-800 IU/day) to assist absorption of the calcium. Call to schedule your mammogram.Perform periodic breast exams to become familiar with your breast tissue so you are more likelyto notice something abnormal and do not need to be concerned about the normal lumps. Return for annual exam in 1 year or sooner if concerns arise.
[2018-04-05 16:13] LABS: Albumin 4.5 g/dL (3.2-5.2); Albumin/Globulin Ratio 1.8 (1-3); BUN/Creatinine Ratio 21.9 (8-20); Calcium 9.4 mg/dL (8.6-10.3); EGFR African American 117.9 (>60); EGFR Non-African American 97.4 (>60); Globulin 2.5 g/dL (2-4); Magnesium 2.1 mg/dL (1.9-2.7); Potassium 4.1 mmol/L (3.5-5.0); Total Bilirubin 0.5 mg/dL (0.2-1.0)
[2018-04-05 19:43] VITALS: BP 123/60
== END 2018-04-05 19:40 | disposition home or self-care (01) ==
LOC: ED 14:44
DX: R07.89 Other chest pain (principal); I51.7 Cardiomegaly; R00.1 Bradycardia, unspecified; R01.1 Cardiac murmur, unspecified; J45.909 Unspecified asthma, uncomplicated; Z88.2 Allergy status to sulfonamides; Z88.8 Allergy status to other drugs, medicaments and biological substances
CPT/HCPCS: 36415; 71045; 80053; 83605; 83735; 84484; 85025; 85379; 93005; 99283

== ENCOUNTER 2018-06-05 12:59 | Emergency (ER) | payer BC ==
--- OUTSIDE RECORDS SUMMARY | 2018-06-05 13:04 | XMS REPORT | Continuity of Care Document ---
:1965 External Reference #:[id number] Author Name Alton Sanam Care Team Providers Name Role Phone Madeline Silverio MD Primary Care Physician Unavailable Payers Date Identification Numbers Payment Provider Subscriber Effective: 2010 Policy Number: [id number] [employer] Jackie Bower Expires: 2013 PayID: [id number] [address] [place] [address] Policy Number: [id number] [employer] Eduardo Bower PayID: [id number] [address] [place] [address] Advance Directives Description No Information Available Problems Date Description Provider Status Onset: 02/15/2013 Family history of breast cancer Luma Sahu M.D. Active Onset: 02/15/2013 Acute bronchitis with bronchospasm Luma Sahu M.D. Active Onset: 02/15/2013 Personal History Of Gestational Diabetes Luma Sahu M.D. Active Family History Date Family Member(s) Observation Comments General Cancer mother Social History Type Date Description Comments Sex Unknown Lives With Spouse Occupation business teacher at [employer] ETOH Use Occasionally consumes alcohol Tobacco Use Start: Unknown Patient has never smoked Recreational Drug Use Denies Drug Use Smoking Status Reviewed: 05/29/18 Patient has never smoked Exercise Type/Frequency Exercises sporadically Allergies, Adverse Reactions, Alerts Date Description Reaction Status Severity Comments 02/15/2013 Sulfa Antibiotics Urticaria Active Severe Medications Medication Date Status Form Strength Qnty SIG Indications Ordering Provider Almotriptan Active Tablets 12.5mg 12tabs One Danny Malate 018 tablet DIXIE Clemente PO at onset of migraine . May take second tablet after two hours. Proair HFA Active Aerosol 108(90Base) 1units two 519.11 Luma 013 mcg/Act puffs Sahu, every 4 M.D. hours as needed for wheeze and chest tightnes s. Multi Complete Active Capsules daily Unknown 000 prn Immunizations Description No Information Available Vital Signs Date Vital Result Comment 05/29/2018 9:24am Height 62 inches 5'2" Weight 150.00 lb with shoes Heart Rate 64 /min BP Systolic Sitting 110 mmHg Lue reg cuff BP Diastolic Sitting 62 mmHg Lue reg cuff BP Systolic Standing 108 mmHg Lue reg cuff BP Diastolic Standing 68 mmHg Lue reg cuff Respiratory Rate 16 /min BMI (Body Mass Index) 27.4 kg/m2 04/11/2018 9:24am Height 61 inches 5'1" Weight 152.00 lb without shoes Heart Rate 56 /min BP Systolic 120 mmHg Rue reg cuff BP Diastolic 82 mmHg Rue reg cuff BP Systolic Sitting 110 mmHg Lue reg cuff BP Diastolic Sitting 70 mmHg Lue reg cuff BP Systolic Standing 112 mmHg Lue reg cuff BP Diastolic Standing 70 mmHg Lue reg cuff Respiratory Rate 16 /min BMI (Body Mass Index) 28.7 kg/m2 04/05/2018 1:41pm Height 62 inches 5'2" Weight 152.00 lb Heart Rate 66 /min BP Systolic 114 mmHg BP Diastolic 66 mmHg Body Temperature 98.3 F O2 % BldC Oximetry 99 % BMI (Body Mass Index) 27.8 kg/m2 11/01/2017 1:03pm Height 62 inches 5'2" Weight 147.00 lb Heart Rate 60 /min BP Systolic 110 mmHg BP Diastolic 70 mmHg O2 % BldC Oximetry 98 % BMI (Body Mass Index) 26.9 kg/m2 02/15/2013 11:05am Height 62 inches 5'2" Weight 138.25 lb Heart Rate 64 /min BP Systolic Sitting 96 mmHg BP Diastolic Sitting 60 mmHg Peak Flow Meter 240 185, 200, 240 BMI (Body Mass Index) 25.3 kg/m2 Results Test Date Facility Test Result H/L Range Note Laboratory test 04/25/2018 [facility] C Reactive 1.60 mg/L N < 8.[address] [place] [address] [phone] B-Type Natriuretic Peptide BNP 32 pg/mL <=100 Erythrocyte Sed Rate 6 mm/Hr N 0-30 1 Laboratory test 04/11/2018 [facility] Erythrocyte Sed <pending> finding [address] [place] [address] [phone] C Reactive Protein <pending> B-Type Natriuretic Peptide BNP <pending> Laboratory test 04/05/2018 [facility] Troponin-I 0.00 ng/mL < 0.[address] (TnI) [place] [address] [phone] Laboratory test 04/05/2018 [facility] Lactic Acid 0.8 mmol/L N 0.5-2.0 [address] [place] [address] [phone] CBC Auto Diff 04/05/2018 [facility] White Blood 6.6 N 3.5- 10.[address] Count 10^3/[place] [address] [phone] Red Blood Count 4.64 10^6/uL N 4.00-5.40 Hemoglobin 14.2 g/dL N 12.0-16.0 Hematocrit 40 % N 35-47 Mean Corpuscular Volume 86 fL N 80-97 Mean Corpuscular Hemoglobin 31 pg N 27-31 Mean Corpuscular HGB Conc 36 g/dL N 31-36 Red Cell Distribution Width 13 % N 10.5-15 Platelet Count 157 10^3/uL N 150-450 Mean Platelet Volume 8.5 fL N 7.4-10.4 Abs Neutrophils 4.3 10^3/uL N 1.5-7.7 Abs Lymphocytes 1.7 10^3/uL N 1.0-4.8 Abs Monocytes 0.4 10^3/uL N 0-0.8 Abs Eosinophils 0.2 10^3/uL N 0-0.6 Abs Basophils 0 10^3/uL N 0-0.2 Abs Nucleated RBC 0 10^3/uL Granulocyte % 64.9 % Lymphocyte % 25.4 % Monocyte % 6.3 % Eosinophil % 2.8 % Basophil % 0.6 % Nucleated Red Blood Cells % 0.1 Laboratory test 04/05/2018 [facility] D Dimer < 200 N Less Than [address] Quantitative ng/mL 230 [place] [address] [phone] Troponin-I (TnI) 0.00 ng/mL <0.04 5 Laboratory test 04/05/2018 [facility] Point of Care 95 mg/dL N 70-100 [address] [place] [address] [phone] Laboratory test 04/05/2018 [facility] Magnesium 2.1 mg/dL N 1.9-2.[address] [place] [address] [phone] Comp Metabolic 04/05/2018 [facility] Sodium 138 mmol/L N 135- [address] [place] [address] [phone] Potassium 4.1 mmol/L N 3.5-5.0 Chloride 107 mmol/L N 101-111 Co2 Carbon Dioxide 26 mmol/L N 22-32 Anion Gap 5 mmol/L N 2-11 Glucose 106 mg/dL High 70-100 Blood Urea Nitrogen 14 mg/dL N 6-24 Creatinine 0.64 mg/dL N 0.51-0.95 BUN/Creatinine Ratio 21.9 High 8-20 Calcium 9.4 mg/dL N 8.6-10.3 Total Protein 7.0 g/dL N 6.4-8.9 Albumin 4.5 g/dL N 3.2-5.2 Globulin 2.5 g/dL N 2-4 Albumin/Globulin Ratio 1.8 N 1-3 Total Bilirubin 0.50 mg/dL N 0.2-1.0 Alkaline Phosphatase 27 U/L Low 34-104 Alt 16 U/L N 7-52 Ast 13 U/L N 13-39 Egfr Non- 97.4 >60 Egfr 117.9 >60 7 Laboratory test 03/28/2018 [facility] Cytology SEE RESULT [address] [place] [address] [phone] Laboratory test 11/28/2017 [facility] TSH (Thyroid 3.75 mcIU/mL N 0.34-[address] Stim Horm) .60 [place] [address] [phone] T3 Total 97 ng/dL N 87-178 Free T4 (Free Thyroxine) 0.69 ng/dL N 0.61-1.12 Vitamin B12 536 pg/mL N 180-914 9 Vitamin D Total 25(Oh) 24.6 ng/mL N 20-50 1 Test Performed by: [facility] [address] [place], [place] [address] Mendez Bah M.D. Director of Laboratory 2 Troponin-I testing on Plasma Separator Tubes (PST) has a known false positive rate of 0.20-0.40%. All positive troponins reflex immediate secondary confirmatory testing. 3 [facility] Severe Sepsis and Septic Shock Management Bundle Measure requires all lactic acids initially measuring >2.0 mmol/L be repeated. 4 Please note: The following may produce a false positive D Dimer test: - Rheumatoid factor greater than 60 IU/ml - Plasma hemoglobin greater than 0.05 gm/dl - Bilirubin greater than 50 mg/dl - Lipids greater than 1000 mg/dl - FDP greater than 20 ug/ml 5 Troponin-I testing on Plasma Separator Tubes (PST) has a known false positive rate of 0.20-0.40%. All positive troponins reflex immediate secondary confirmatory testing. 6 [employer]member: [id number] 7 Because ethnic data is not always readily available, this report includes an eGFR for both -Americans and non- Americans. The National Kidney Disease Education Program (NKDEP) does not endorse the use of the MDRD equation for patients that are not between the ages of 18 and 70, are , have extremes of body size, muscle mass, or nutritional status, or are non- or non-. According to the National Kidney Foundation, irrespective of diagnosis, the stage of the disease is based on the level of kidney function: Stage Description GFR(mL/min/1.73 m(2)) 1 Kidney damage with normal or decreased GFR 90 2 Kidney damage with mild decrease in GFR 60-89 3 Moderate decrease in GFR 30-59 4 Severe decrease in GFR 15-29 5 Kidney failure <15 (or dialysis) 8 SEE RESULT BELOW Name: JACKIE BOWER : [address]: Marni Alfaro MD Acct: [id number] Unit: [id number] AGE: 52 Location: [facility] Re03/28/18 SEX: F Status: REG REF SPEC: [id number] ELIZABETH: 03/28/[address]: Marni Alfaro MD REQ: [id number] RECD: 03/28/18 STATUS: SARAH ANDRADE DR: Madeline Silverio MD _ ORDERED: TP IMAGE ANALYS, HPV/Thin Prep COMMENTS: [id number] Negative for Intraepithelial lesion or Malignancy Date Time Test Result Flag (u) Normal Range 03/28/181337 @ HPV RNA Negative Negative @ @ The high-risk HPV types detected by the assay include: 16, @ 18, 31, 33, 35, 39, 45, 51, 52, 56, 58, 59, 66, and 68. A. Ectocervical/Endocervical Specimen Adequacy: Satisfactory of evaluation Transformation zone component identified Patient Information: HPV: High risk HPV RNA testing regardless of pap results. Actual Specimen Date: 03/28/18 Last Menstrual Date: 03/16/18 Date of Last Specimen: 07/19/16 Signed by and Reported on: TYRELL Anderson(ASCP) [id number] This Pap test was evaluated with the assistance of the [employer] Test Imaging System. Due to cytologic findings at the diamond assorter microscope, comprehensive manual rescreening by a Gamma Operator may be required. The Pap Smear is [...] evaluated every 1-3 years. END OF REPORT DEPARTMENT OF PATHOLOGY, [address] [place] [address] Mendez Bah M.D. Director [facility] # [id number] 9 Normal Range 180 to 914 Indeterminate Range 145 to 180 Deficient Range <145 Procedures Date Code Description Status 05/10/2018 99416 Holter Monitor Review (24 hr)dr review & interp only Completed 05/09/2018 71745 ECG Monitor/Recording W/Visual Superimposition Scanning Completed 05/08/2018 54069 ECHO Transthorasic Realtime 2D W Doppler & Color Flow Completed Hosp 04/11/2018 82233 EKG Tracing & Interpretation Completed 09/05/2017 [id number] Colonoscopy Completed 08/28/2017 [id number] Mammogram Completed 09/01/2015 [id number] Mammogram Completed 10/23/2014 [id number] Mammogram Completed 07/26/2012 79552 EKG Tracing & Interpretation Completed 11/16/2011 [id number] Mammogram Completed Encounters Type Date Location Provider Dx Diagnosis Office Visit 04/11/2018 [facility] Eduardo Smith, Q21.1 Atrial septal 9:30a Of [facility] DO FACC defect R07.9 Chest pain, unspecified R06.02 Shortness of breath R42 Dizziness and giddiness Q67.6 Pectus excavatum I45.10 Unspecified right bundle-branch block Office Visit 04/05/2018 1:40p [facility] Internal Danny Chyna, MASTER CONTROL OPERATOR R07.89 Other chest Medicine - pain [place] R63.5 Abnormal weight gain R53.83 Other fatigue Office Visit 11/01/2017 1:00p [facility] Internal Danny Chyna, R22.41 Localized Medicine - MASTER CONTROL OPERATOR swelling, mass [place] and lump, right lower limb R22.42 Localized swelling, mass and lump, left lower limb R53.83 Other fatigue R22.2 Localized swelling, mass and lump, trunk Office Visit 02/15/2013 10:40a [facility] Internal Luma Sahu, V16.3 History Family Medicine - M.D. Malignant [place] Neoplasm Breast 519.11 Acute Bronchospasm V12.21 Personal History Of Gestational Diabetes 706.2 Sebaceous Cyst Office Visit 07/26/2012 9:45a [facility] Zaida Robert, 786.59 Pain Chest Of [facility] M.D. Other 745.5 Atrial Septal Defect Ostium Secundum Type Plan of Treatment 05/29/2018 - Eduardo Smith, FACCQ67.6 Pectus excavatumComments:Your coronary artery calcium score was 0. This means you have an incredibly low risk (lower than baseline average) of having a cardiac event within the next 5- [address] scan showed severe pectusexcavatum. I think this is causing a lot of the dyspnea and chest discomfort. Some of the chest discomfort may also be related to post-surgical scarring/changes. The blood work (ESR and CRP) were normal meaning no active inflammation. The BNP level was normal suggesting no abnormal increased pressure from inside the heart. The risks of the surgery to correct pectus excavatum for symptom improvement far outweigh the benefits in your situation. It is possible that you also have asthma. As we discussed, I am going to try to arrange a cardiopulmonary exercise test at [facility] to evaluate your limitations further. The echocardiogram showed the main heart muscle (left ventricle) is strong and there is no residual hole in the heart (ASD - stands for atrial septal defect, a hole between the top two chambers of the heart)The heart fluttering was associated with a few PVC (extra heart beat from the bottom of the heart) and PAC's (extra heart beat from the top of the heart). These are benign. If they bother you, you could try a daily or as needed beta-jean paul. To measure your oxygen levels during a migraine, you would either need to buy a finger monitor at a medical supply store, or call Dr. Silverio or our office to have your oxygen levels measured during a migraine. To qualify or benefit from supplement oxygen, you levels would have to be less than 88%Referral:Humphrey Guzmán MD, Sports Medicine:Family prFollow up:f/u after cardiopulmonary exercise oxacffsP59.009 Migraine without aura, not intractable, without status migraReferral:Meredith Bentley MD, VtfusguiyU70.1 Atrial septal defect
[2018-06-05 13:07] VITALS: BP 95/57
--- NOTE | 2018-06-05 13:44 | UC ---
Skin Complaint HPI - HPI Summary HPI Summary: 52 y/o female presents to the urgent care c/o tick bite in the posterior side of the lef lower leg 2 days ago. Pt reports she went hiking and the next morning she noticed the tick which was mildly engorged. She removed it. This morning she noticed a discrete red rash around tick bite and she is concerned w / Lyme. Pain is mild at touch 1/10. Pt denies fever, HENLEY, joint pain, SOB, chest pain,abdominal pain, N/V/D. - History of Current Complaint Chief Complaint: UCSkin Time Seen by Provider: 06/05/18 13:43 Stated Complaint: TICK BITE LFT ANKLE Hx Obtained From: Patient Hx Last Menstrual Period: 05/13/18 Onset/Duration: Sudden Onset, Lasting Days - 2 days, Resolved - tick removed Skin Exposure Onset/Duration: Days Ago - 2 days Timing: Constant Onset Severity: Mild Current Severity: Mild Pain Intensity: 1 - at touch Pain Scale Used: 0-10 Numeric Location: Discrete - posterior side of the left lower leg Character: Redness Aggravating Factor(s): Touch Alleviating Factor(s): Other - tick removal Associated Signs & Symptoms: Positive: Rash - tick bite on posterior side of left leg Related History: Possible Reaction to: Insect - Allergy/Home Medications Allergies/Adverse Reactions: Allergies Allergy/AdvReac Type Severity Reaction Status Date / Time albuterol Allergy Shortness Verified 06/05/18 13:08 of Breath Sulfa (Sulfonamide Allergy Hives Verified 06/05/18 13:08 Antibiotics) PMH/Surg Hx/FS Hx/Imm Hx Previously Healthy: Yes Neurological History: Migraine Other History Of: Negative For: Anticoagulant Therapy - Surgical History Surgical History: Yes Surgery Procedure, Year, and Place: HEART MURMUR CORRECTION 1984, BREAST REDUCTION SURGERY 2010, tonsilectomy - Family History Known Family History: Positive: Diabetes Negative: Blood Disorder Family History: NO FAMILY H/O INFLAMMATORY BOWEL DISEASE - Social History Occupation: Employed Full-time Lives: With Family Alcohol Use: Rare Substance Use Type: None Smoking Status (MU): Never Smoked Tobacco Have You Smoked in the Last Year: No Review of Systems All Other Systems Reviewed And Are Negative: Yes Constitutional: Positive: Negative Skin: Positive: Other - tick bite in the left lower leg 2 days ago. tick removed monday Eyes: Positive: Negative ENT: Positive: Negative Respiratory: Positive: Negative Cardiovascular: Positive: Negative Gastrointestinal: Positive: Negative Genitourinary: Positive: Negative Motor: Positive: Negative Neurovascular: Positive: Negative Musculoskeletal: Positive: Negative Neurological: Positive: Negative Psychological: Positive: Negative Is Patient Immunocompromised?: No Physical Exam - Summary Physical Exam Summary: Vital Signs Reviewed: Yes General: well developed, well nourished female sitting in the examining table w/ o any apparent distress. Eyes: Positive: Conjunctiva Clear - PERRLA, EOMI ENT: Positive: Normal ENT inspection, Hearing grossly normal, Pharynx normal, TMs normal Neck: Positive: Supple, Nontender, No Lymphadenopathy Respiratory: Positive: Chest nontender, Lungs clear, Normal breath sounds Cardiovascular: Positive: RRR, No Murmur, Pulses Normal Abdomen Description: Positive: Nontender, No Organomegaly, Soft. Negative: CVA Tenderness (R), CVA Tenderness (L) Bowel Sounds: Positive: Present Musculoskeletal: Positive: Strength Intact, ROM Intact, No Edema Neurological Exam: Normal Psychological Exam: Normal Skin: Positive: rashes - posterior aspect of the left lower leg w/ tick bite with surrounding erythema, non tender to palpation. tick no longer present, no swelling or drainage observed. Triage Information Reviewed: Yes Vital Signs: Initial Vital Signs Temp 98 F 06/05/18 13:04 Pulse 66 06/05/18 13:04 Resp 16 06/05/18 13:04 BP 95/57 06/05/18 13:04 Pulse Ox 100 06/05/18 13:04 Course/Dx - Course Course Of Treatment: 52 y/o female presents to the urgent care c/o tick bite in the posterior side of the lef lower leg 2 days ago. Pt reports she went hiking and the next morning she noticed the tick which was mildly engorged. She removed it. This morning she noticed a discrete red rash around tick bite and she is concerned w / Lyme. Pain is mild at touch 1/10. Pt denies fever, HENLEY, joint pain, SOB, chest pain,abdominal pain, N/V/D. Hx obtained. Pt w/ posterior aspect of the left lower leg w/ tick bite with surrounding erythema, non tender to palpation. tick no longer present on examination. Antibiotic prophylaxis with Doxycycline given to the patient to prevent lyme Disease.. Pt tolerated well medication. Pt advised to observe the area for the development or Erythema Migrans for upto 30 days following exposure. Advised if he develops fever or erythema Migrans to return to the clinic or PCP for further treatment .Pt understood and agreed with plan of care. - Differential Diagnoses - Skin Complaint Differential Diagnoses: Abscess, Local Allergic Reaction, Tick Born Illness, Urticaria - Diagnoses Provider Diagnosis: Tick bite Discharge - Sign-Out/Discharge Documenting (check all that apply): Patient Departure - D/C home All imaging exams completed and their final reports reviewed: No Studies - Discharge Plan Condition: Stable Disposition: HOME Patient Education Materials: Tick Bite (ED) Referrals: Madeline Silverio MD [Primary Care Provider] - 2 Weeks Additional Instructions: 1- Please observe the area for the development or Erythema Migrans for upto 30 days following exposure. Components of the tick saliva can cause transient erythema that should not be confused with Erythema Migrans. If you develop the bull's eye rash, fever, joint pains please return to the urgent care or f/u with your PCP for further management. 2-Antibiotic prophylaxis with Doxycycline was given to you today to prevent lyme Disease. Lyme serology can be drawn in 2 weeks with your PCP to r/o Lyme disease since there is probability of negative results at early exposure. - Billing Disposition and Condition Condition: STABLE Disposition: Home - Attestation Statements Provider Attestation: Per institutional requirements, I have reviewed the chart, however, I was not consulted specifically or made aware of this patient by the midlevel provider. I did not personally evaluate, interact with , or disposition this patient.
[2018-06-05] MEDS ORDERED: DOXYcycline CAP(*) 100 MG PO ONE (13:58)
== END 2018-06-05 14:08 | disposition home or self-care (01) ==
LOC: UCEAST 12:59
DX: T63.481A Toxic effect of venom of other arthropod, accidental (unintentional), initial encounter (principal); Y92.9 Unspecified place or not applicable; Z88.2 Allergy status to sulfonamides
CPT/HCPCS: 99212; A9270-GY; G0463

== ENCOUNTER 2019-02-19 17:36 | Emergency (ER) | payer BC ==
[2019-02-19 17:45] VITALS: BP 144/73
[2019-02-19 18:45] LABS: ABS Eosinophils 0.2 10^3/ul (0-0.6); ABS Lymphocytes 1.7 10^3/ul (1.0-4.8); ABS Monocytes 0.5 10^3/ul (0-0.8); ABS Neutrophils 4.8 10^3/ul (1.5-7.7); Eosinophil % 2.3 %; Hematocrit 37 % (35-47); Hemoglobin 13.2 g/dL (12.0-16.0); Lymphocyte % 23.2 %; Mean Corpuscular HGB Conc 36 g/dL (31-36); Mean Corpuscular Hemoglobin 31 pg (27-31); Mean Corpuscular Volume 86 fL (80-97); Mean Platelet Volume 8.8 fL (7.4-10.4); Platelet Count 163 10^3/uL (150-450); Red Blood Count 4.25 10^6 /uL (3.70-4.87); Red Cell Distribution Width 13 % (10-15); White Blood Count 7.1 10^3/uL (3.5-10.8)
[2019-02-19 18:56] LABS: INR 0.9 (0.82-1.09)
[2019-02-19 19:00] LABS: Albumin/Globulin Ratio 1.7 (1-3); BUN/Creatinine Ratio 26.3 (8-20); Calcium 9.2 mg/dL (8.6-10.3); EGFR African American 134.2 (>60); Globulin 2.4 g/dL (2-4); Potassium 3.3 mmol/L (3.5-5.0); Total Bilirubin 0.4 mg/dL (0.2-1.0); Total Protein 6.4 g/dL (6.4-8.9)
[2019-02-19 19:02] LABS: Troponin I 0.01 ng/mL (<0.03)
== END 2019-02-19 19:01 | disposition left against medical advice (07) ==
LOC: ED 17:36
DX: R07.9 Chest pain, unspecified (principal); Z53.21 Procedure and treatment not carried out due to patient leaving prior to being seen by health care provider
CPT/HCPCS: 36415; 80053; 84484; 85025; 85610; 93005; 99282